=== PATIENT | female | born 1975 | race Caucasian/White ===

== ENCOUNTER → 2019-04-05 06:44 | Outpatient (CLI) | payer OTHER, SELFPAY ==
--- NOTE | 2019-04-05 | DI.MRI.S_ITS ---
PROCEDURE: MR THORACIC SPINE WO CON INDICATIONS: Radiculopathy, thoracic region TECHNIQUE: Noncontrast sagittal T1 spine echo and T2 fast spin echo, sagittal STIR, axial T1 and T2 fast spin echo through the thoracic spine. COMPARISON: [facility], CR, XR CERVICAL SPINE 2 OR 3 VIEWS, 08/31/2017, 8:47. [facility], MR, MR CERVICAL SPINE WITHOUT CONTRAST, 10/16/2018, 18:29. FINDINGS: Image quality: Excellent. Alignment and Curvature: There is normal bony alignment. Remote ACDF is noted at C6-C7. The thoracic vertebral bodies are normally . Bone Marrow: Marrow is of normal overall signal. No acute vertebral body compression fractures. Spinal Cord: Visualized spinal cord is normal in size and signal. Paraspinous Soft Tissues: No paravertebral masses. Miscellaneous: Abnormal levels are described below: T7-T8: Moderate right paracentral disc extrusion with disc material extending superiorly behind T7. There is indentation on the right anterior cord with mild canal stenosis. Bilateral foramen are patent. T11-T12: Large left paracentral disc protrusion impinges on the left lateral recess, likely resulting in left T11 and possibly left T12 radiculopathy. Disc material indents on the left anterior aspect of the cord, resulting in moderate left canal stenosis. No canal stenosis or foraminal narrowing at other thoracic levels. IMPRESSION: 1. Large left paracentral disc protrusion at T11-T12 impinges on the left lateral recess and indents on the left hemicord. It causes moderate stenosis of the left reanna-canal. It likely results in the left T11 and possibly a left T12 radiculopathy. 2. At T7-T8, a moderate right paracentral disc extrusion indents on the right anterior cord with mild canal stenosis. Dictated by: Mark Barry M.D. on 04/05/2019 at 10:46 Approved by: Makr Barry M.D. on 04/05/2019 at 10:54
== END ==
PROVIDERS: PCP Specialist; Visit Provider Preventive Medicine Occupational Medicine
DX: M51.14 Intervertebral disc disorders with radiculopathy, thoracic region (principal); M48.04 Spinal stenosis, thoracic region
CPT/HCPCS: 72146

== ENCOUNTER 2019-04-26 08:44 | Outpatient (CLI) | payer OTHER, SELFPAY ==
[2019-04-26] VITALS (8 sets, daily range): BP systolic 104–124; BP diastolic 57–87; PULSE 63–75; RESP 15–16; TEMP 36.6; O2SAT 96–100
--- NOTE | 2019-04-26 08:47 | DI.RAD.S_ITS ---
PROCEDURE: PAIN C/T TRANFORAMINAL INJECT INDICATIONS: RADICULOPATHY FINDINGS: Fluoroscopic spot filming was performed to verify placement of spinal needles at the C6-C7 level(s), as labeled on the films. Appropriate location(s) of the needle tip(s) was confirmed by injection of iodinated contrast. Dictated by: Rudy Moss M.D. on 04/26/2019 at 12:56 Approved by: Rudy Moss M.D. on 04/26/2019 at 12:57
[2019-04-26] MEDS: MIDAZOLAM 5 MG/5 ML VIAL IV (10:04)
[2019-04-26] MEDS: fentaNYL 100 MCG/2 ML INJ 50 MCG IV (10:04)
[2019-04-26] MEDS: IOPAMIDOL 15 ML VIAL 3 ML INJ (10:15)
[2019-04-26] MEDS: LIDOCAINE 1% 20 ML 5 ML INJ (10:15)
[2019-04-26] MEDS: DEXAMETHASONE 10 MG/ML VIAL 30 MG INJ (10:15)
--- NOTE | 2019-04-26 10:21 | P.PCN_ITS ---
Procedures Date/Time Date of procedure: 04/26/19 Time of procedure: 10:21 General Procedure description: PREOP DIAGNOSIS 1. CERVICAL STENOSIS, 2. CERVICAL HNP WITH UPPER EXTREMITY RADICULAR FEATURES, POST OP DIAGNOSIS 1. CERVICAL STENOSIS, 2. CERVICAL HNP WITH UPPER EXTREMITY RADICULAR FEATURES, PROCEDURES 1. FLUORSCOPICALLY GUIDED CONTRAST CONTROLLED INTERLAMINAR EPIDURAL STEROID INJECTION - C6/7 TL LIEN PHYSICIAN: Daniel Ibarra DO MIKO Andreina is referred by Dr. Mendenhall for treatment of Cervical HNP with Upper Extremity Paresthesias. FINDINGS Cervical Stenosis due to disc deterioration and nerve root irritation and nerve root irritation DESCRIPTION OF PROCEDURE Fluoroscopically guided, contrast-controlled C6/7 translaminar epidural steroid injection with conscious sedation. Following review of allergy and review of potential side effects and complications, including, but not necessarily limited to, infection, allergic reaction, local tissue breakdown, temporary as well as permanent nerve injury, stroke, paralysis, and possible , the patient indicated that patient understood and agreed to proceed. An informed consent document was signed by the patient, witnessed by a nurse, and placed in the patient's chart. Additionally, other treatment options including modalities, medications, and physical therapy were reviewed with the patient. After review of previous anaesthesic history and IV conscious sedation the patient was deemed safe to proceed with todays procedure with IV conscious sedation as ASA class II designation. Safety time-out was performed to confirm patient ID, procedure to be performed and site of procedure. IV sedation was accomplished with a combination of 2mg of Versed and 50mcg of Fentanyl administered by the RN after DO order, titrated to patient comfort during the course of the procedure while the patient remained responsive to all verbal commands. In the prone position, following sterile prep and drape of the cervical region, the C6/7 translaminar space was identified fluoroscopically. The skin was anesthetized via a 25-gauge 1.5-inch needle with 1% lidocaine solution. At this point, a 25-gauge, 2.5-inch short bevel spinal needle was atraumatically introduced and advanced under fluoroscopic guidance into epidural space at the C6/7 translaminar space. Depth was confirmed on lateral view. Radiological data, including multiple fluoroscopic views of the cervical spine, reveal a spinal needle at the C6/7 translaminar space. Lateral views then show placement of the needle in the epidural space. Subsequent views show contrast material flowing superiorly and inferiorly in the epidural space. DSA fluoroscopy with live contrast injection, once again, confirmed no vascular or intrathecal uptake. At this point, using loss of resistance technique with saline and air, the epidural space was entered. Following negative aspiration, injection of approximately 1.5 cc of Isovue-200 with live fluoroscopy in the AP view confirmed epidural flow in the epidural space without vascular or intrathecal uptake observed. Subsequently, a test dose of 1 cc of 1% lidocaine solution was injected and patient was observed for two minutes without signs or symptoms of complications, including abdominal pain, shortness of breath, bilateral upper or lower extremity weakness, nausea and vomiting, prior to steroid injection. At this point, 2cc or 20mg of dexamethasone was then injected without incident. The patient tolerated the procedure well without signs or symptoms of complications prior to being transferred to the recovery area for further mo nitoring, The patient was then transferred to the recovery area where they were observed for an appropriate period of time after the injection. The patient reported a VAS score of 6 prior to the procedure and a post-procedure VAS of 0. Total Fluoroscopy Time: 37.0 seconds Total Conscious Time: 24min POST OP INSTRUCTIONS The patient was provided a Pain Log to continue to record their response to the target-specific procedure prior to follow-up visit with the referring provider. Additionally, specific post-injection care instructions and a contact number to our office were provided if concerns arise regarding possible complications associated with the procedure are suspected. Daniel Ibarra DO Complications: none
--- NOTE | 2019-04-26 16:53 | PC.NURSE ---
Late entry: post procedure note--Time out at 1003. Medicated with 2 IV Versed and 50 mcg IV Fentanyl at 1004 with good pain relief. VSS throughout. 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 Procedure end at 1015. Patient drowsy but awake. Able to sit up and transfer to wheelchair without any difficulties. No complaints of pain. 0/10. Denies any unusual numbness, tingling, or headaches to upper extremities. Transported for post procedure monitoring. Handoff report given to Mickey Patel RN
== END 2019-04-26 10:49 | disposition home or self-care (01) ==
PROVIDERS: PCP Preventive Medicine Occupational Medicine; Visit Provider Physical Medicine & Rehabilitation
DX: M48.02 Spinal stenosis, cervical region (principal); M50.123 Cervical disc disorder at C6-C7 level with radiculopathy; R20.2 Paresthesia of skin
CPT/HCPCS: 62321; 64479; 99152; J1100; J2250; J3010

== ENCOUNTER 2019-07-10 07:58 | Outpatient (CLI) | payer OTHER, SELFPAY ==
[2019-07-10] VITALS (11 sets, daily range): BP systolic 107–123; BP diastolic 58–87; PULSE 54–84; RESP 16; TEMP 36.4; O2SAT 97–100
--- NOTE | 2019-07-10 08:00 | DI.RAD.S_ITS ---
PROCEDURE: PAIN C/T TRANFORAMINAL INJECT INDICATIONS: SPONDYLOSIS FINDINGS: Fluoroscopic spot filming was performed to verify placement of spinal needles at the T7-T8 level(s), as labeled on the films. Appropriate location(s) of the needle tip(s) was confirmed by injection of iodinated contrast. IMPRESSION: Fluoroscopy for pain management. Dictated by: Mercedes Willingham M.D. on 07/10/2019 at 11:30 Approved by: Mercedes Willingham M.D. on 07/10/2019 at 11:31
[2019-07-10] MEDS: MIDAZOLAM 5 MG/5 ML VIAL IV (10:40)
[2019-07-10] MEDS: fentaNYL 100 MCG/2 ML INJ 50 MCG IV (10:40)
[2019-07-10] MEDS: DEXAMETHASONE 10 MG/ML VIAL 30 MG INJ (10:50)
[2019-07-10] MEDS: LIDOCAINE 1% 20 ML 5 ML INJ (10:50)
[2019-07-10] MEDS: IOPAMIDOL 15 ML VIAL 3 ML INJ (10:50)
--- NOTE | 2019-07-10 10:53 | PC.NURSE ---
ASSISTING PT OFF TABLE AND TRANSPORTING TO POST PROC AREA IN STABLE CONDITION. PASSING RN CARE OF PT TO DWIGHT Paul RN.
--- NOTE | 2019-07-10 11:00 | P.PCN_ITS ---
Procedures Date/Time Date of procedure: 07/10/19 Time of procedure: 11:00 General Procedure description: PREOP DIAGNOSIS 1. FORMAINAL STENOSIS WITH LE SYMPTOMS, POST OP DIAGNOSIS 1. FORMAINAL STENOSIS WITH LE SYMPTOMS, PROCEDURES 1. FLUOROSCOPICALLY GUIDED CONTRAST CONTROLLED TRANSFORAMINAL EPIDURAL STEROID INJECTION - RIGHT T7/8 TFESI PHYSICIAN: Daniel Ibarra, DO INDICATIONS Andreina is referred by Dr. Mendenhall for treatment of Foraminal Stenosis with Right thoracic Symptoms FINDINGS Foraminal Nerve Root Compression secondary to disc disease and facet hypertrophy DESCRIPTION OF PROCEDURE Following review of allergy and review of potential side effects and complications, including, but not necessarily limited to, infection, allergic reaction, local tissue breakdown, stroke, temporary or permanent nerve injury, paralysis, and possible , the patient indicated that the patient understood and agreed to proceed. An informed consent document was signed by the patient, witnessed by a nurse, and placed in the patient's chart. Additionally, other treatment options including medications, modalities, and physical therapy were reviewed with the patient. After review of previous anaesthesic history and IV conscious sedation the patient was deemed safe to proceed with todays procedure with IV conscious sedation as ASA class II designation. Safety time-out was performed to confirm patient ID, procedure to be performed and site of procedure. IV sedation was accomplished with a combination of 2mg of Versed and 50mcg of Fentanyl was administered by the RN after DO order, titrated to patient comfort during the course of the procedure while the patient remained responsive to all verbal commands In the prone position following sterile prep and drape of the lumbar region, the right T7/8 posterior neuroforamen was identified fluoroscopically. The skin was anesthetized via a 25-gauge 1.5-inch needle with 1% lidocaine solution. At this point, a 25-gauge 3.5-inch spinal needle was atraumatically introduced and advanced under fluoroscopic guidance through the posterior right T7/8 neuroforamen to approximately the anterior aspect of the canal. Depth was confirmed on lateral view. Following negative aspiration, injection of approximately 1.5 cc of Isovue 200 under live fluoroscopy in the AP view confirmed excellent flow along the nerve root, into the epidural space without vascular or intrathecal uptake observed Radiological data, including multiple fluoroscopic views reveal the needle placement in the right T7/8 posterior neuroforamen. Subsequent views show flow of contrast material flowing superiorly and inferiorly along the nerve root confirming epidural flow. Subsequently, a test dose of 1.5 cc of 1% lidocaine solution was administered and patient was observed for signs or symptoms of complications, including abdominal pain, shortness of breath, bilateral upper or lower extremity weakness, nausea and vomiting, prior to steroid injection. At this point, a total of 2cc or 20mg of dexamethasone was injected without incident. The procedure tolerated the procedure well without signs or symptoms of complications prior to transfer to the recovery area continued monitoring without incident.The patient was then transferred to the recovery area where they were observed for an appropriate time after the injection. The patient reported a VAS score of 7 prior to the procedure and a post- procedure VAS of 0. Total Fluoroscopy Time: 17.3 seconds Total Conscious Sedation Time: 24min POST OP INSTRUCTIONS The patient was provided a Pain Log to continue to record their response to the target-specific procedure prior to follow-up visit with their referring physician. Additionally, specific post-injection care instructions and a contact number to our office were provided if concerns arise regarding possible complications associated with the procedure are suspected. Daniel Ibarra DO Complications: none
== END 2019-07-10 11:26 | disposition home or self-care (01) ==
LOC: RAD 07:59
PROVIDERS: PCP Preventive Medicine Occupational Medicine; Visit Provider Physical Medicine & Rehabilitation
DX: M48.04 Spinal stenosis, thoracic region (principal); M51.14 Intervertebral disc disorders with radiculopathy, thoracic region
CPT/HCPCS: 64479; 99152; J1100; J2250; J3010

== ENCOUNTER → 2020-03-24 09:52 | Outpatient (CLI) | payer OTHER, SELFPAY ==
--- NOTE | 2020-03-24 09:53 | DI.MRI.S_ITS ---
PROCEDURE: MR CERVICAL SPINE WO CON INDICATIONS: Status post cervical fusion TECHNIQUE: Noncontrast sagittal T1 spin echo and T2 fast spin echo, sagittal STIR, foraminal oblique sagittal T2 fast spin echo, and axial gradient echo or T2 fast spin echo through the cervical spine. COMPARISON: [facility], MR, MR CERVICAL SPINE WITHOUT CONTRAST, 10/16/2018, 18:29 (images only, no report). [facility], CT, CT CERVICAL SPINE WITHOUT CONTRAST, 04/06/2017, 13:27. [facility], MR, MR THORACIC SPINE WO CON, 04/05/2019, 7:08. [facility], CR, XR CERVICAL SPINE 2 OR 3 VIEWS, 08/31/2017, 8:47. FINDINGS: Image quality: Diagnostic, with note made of motion artifact. Alignment and Curvature: There is normal bony alignment. Bone Marrow: Marrow demonstrates normal overall signal. Spinal Cord: Visualized spinal cord has normal size and signal. No cerebellar tonsillar herniation. Paraspinous Soft Tissues: No paravertebral masses. Prevertebral soft tissues are normal in thickness. C2-C3: No significant abnormality is seen. C3-C4: The disc height is well-preserved. Loss of disc signal is seen at this level. A mild degree of generalized disc osteophyte complex is seen. Mild facet joint hypertrophy is seen. There is mild to moderate left-sided and mild right-sided neural foraminal narrowing seen. The central canal is widely patent. The right-sided neural foraminal narrowing appears increased compared to the prior MRI. C4-C5: The disc height is well-preserved. Loss of disc signal is seen at this level. A mild degree of generalized disc osteophyte complex is seen. Mild to moderate facet hypertrophy is seen. Mild to moderate bilateral neural foraminal narrowing is seen. The central canal is widely patent. Stable from the prior study. C5-C6: The disc height is well-preserved. Loss of disc signal is seen at this level. Moderate generalized disc osteophyte complex is seen. Mild to moderate facet hypertrophy is seen. There is at least moderate right-sided and moderate left-sided neural foraminal narrowing seen. Mild central canal narrowing is seen. These degenerative changes appear slightly progressed compared to the prior MRI. C6-C7: Postoperative changes are seen anteriorly at this level, with associated susceptibility artifact. A mild degree of generalized disc osteophyte complex is seen. Minimal bilateral neural foraminal narrowing is seen. The central canal is widely patent. Stable from the prior study. C7-T1: The disc height is well-preserved. Loss of disc signal is seen at this level. A mild degree of generalized disc osteophyte complex is seen. No significant neural foraminal or central canal narrowing can be seen. Stable from the prior study. IMPRESSION: Unremarkable anterior fixation hardware at C6-C7. Mild progression of degenerative change at C3-C4 and C5-C6 compared to the prior outside 2019 MRI. Dictated by: Henrique Chiang M.D. on 03/24/2020 at 10:26 Approved by: Henrique Chiang M.D. on 03/24/2020 at 10:32
== END ==
PROVIDERS: PCP Preventive Medicine Occupational Medicine; Referring Provider Physical Medicine & Rehabilitation; Visit Provider Physical Medicine & Rehabilitation
DX: M47.22 Other spondylosis with radiculopathy, cervical region (principal); Z98.1 Arthrodesis status
CPT/HCPCS: 72141

== ENCOUNTER 2020-04-17 10:11 | Outpatient (CLI) | payer OTHER, SELFPAY | END 2020-04-17 14:29 | disposition home or self-care (01) | LOC: PHYS 10:13 | PROVIDERS: PCP Preventive Medicine Occupational Medicine; Referring Provider Physical Medicine & Rehabilitation; Visit Provider Physical Medicine & Rehabilitation | DX: M50.20 Other cervical disc displacement, unspecified cervical region (principal); M51.04 Intervertebral disc disorders with myelopathy, thoracic region; M54.12 Radiculopathy, cervical region; M47.24 Other spondylosis with radiculopathy, thoracic region | CPT/HCPCS: 95886; 95912 ==

== ENCOUNTER → 2020-04-19 10:10 | Outpatient (CLI) | payer OTHER, SELFPAY ==
[2020-04-21 07:58] LABS: COVID19 Sendout Not Detected (Not Detect)
== END ==
PROVIDERS: PCP Preventive Medicine Occupational Medicine; Visit Provider Physician Assistant
DX: Z01.812 Encounter for preprocedural laboratory examination (principal)
CPT/HCPCS: 87635

== ENCOUNTER → 2020-04-22 07:57 | Outpatient (CLI) | payer OTHER, SELFPAY ==
[2020-04-22] VITALS (8 sets, daily range): BP systolic 114–144; BP diastolic 72–88; PULSE 62–77; RESP 9–16; TEMP 36.2; O2SAT 99–100
--- NOTE | 2020-04-22 07:59 | DI.RAD.S_ITS ---
PROCEDURE: PAIN C/T INTERLAMINAR INJECT INDICATIONS: INTERVERTEBRAL DISC DISORDER COMPARISON: [facility], , PAIN C/T INTERLAMINAR INJECT, 04/26/2019, 10:09. FINDINGS: Fluoroscopic spot filming was performed to verify placement of spinal needles at the T8-T9 level, as labeled on the films. Appropriate location(s) of the needle tip(s) was confirmed by injection of iodinated contrast. IMPRESSION: Intraprocedural examination within normal limits. Dictated by: Henrique Chiang M.D. on 04/22/2020 at 10:08 Approved by: Henrique Chiang M.D. on 04/22/2020 at 10:09
[2020-04-22] MEDS: fentaNYL 100 MCG/2 ML INJ 50 MCG IV (09:06)
[2020-04-22] MEDS: MIDAZOLAM 5 MG/5 ML VIAL IV (09:06)
[2020-04-22] MEDS: BUPIVACAINE 0.25% (PF) VIAL 2 ML INJ (09:10)
[2020-04-22] MEDS: DEXAMETHASONE 10 MG/ML VIAL 30 MG INJ (09:10)
[2020-04-22] MEDS: IOPAMIDOL 15 ML VIAL 3 ML INJ (09:10)
--- NOTE | 2020-04-22 09:25 | PM.PROC.IR.1 ---
Date/Time/Diagnoses Date of procedure: 04/22/20 Time of procedure: 09:25 Pre-procedure diagnosis: Thoracic stenosis with HNP Post-procedure diagnosis: same Procedure Notes Procedure: Fluoroscopic guided, contrast controlled T8-9 translaminar epidural steroid injection with conscious sedation. Indications: Andreina is referred by Dr. Mendenhall for treatment of thoracic DDD/DJD with radiculopathy Physician: Daniel Ibarra Total Fluoroscopy time (seconds): 18 Total sedation minutes: 14 Complications: none Procedure in detail & Post-procedure care: DESCRIPTION OF PROCEDURE Fluoroscopic guided, contrast controlled T8-9 translaminar epidural steroid injection with conscious sedation. Following review of allergy review potential side effects and complications, including, but not necessarily limited to, infection, allergic reaction, local tissue breakdown, temporary as well as permanent nerve injury, stroke, paralysis and possible , the patient indicated that they understood and agreed to proceed. An informed consent document was signed by the patient, witnessed by the nurse, and placed in the patient's chart. Additionally other treatment options including modalities, medications and physical therapy were reviewed with the patient. After review of previous anaesthesic history and IV conscious sedation the patient was deemed safe to proceed with today's procedure with IV conscious sedation as ASA class II designation. Safety time-out was performed to confirm patient ID, procedure to be performed and site of procedure. IV sedation was accomplished with a combination of 2mg of Versed and 50mcg of Fentanyl administered by the RN after DO order, titrated to patient comfort during the course of the procedure while the patient remained responsive to all verbal commands In the prone position, following sterile prep and drape of the thoracic region the T8-9 translaminar space was identified fluoroscopically. The skin was anesthetized via 25 gauge 1.5inch needle with 1% lidocaine solution. At this point a 22gauge epidural needle was atraumatically introduced and advanced under fluoroscopic guidance into the region of the T8-9 translaminar space depth was confirmed on lateral view. Radiographic data, including multiple fluoroscopic views of the thoracic spine, reveals spinal needle at the T8-9 translaminar space. Lateral views then showed the placement of the needle in the epidural space. Subsequent view show contrast material flowing superiorly and inferiorly in the epidural space. No vascular or intrathecal uptake is observed. At this point using loss of resistance technique with saline and the epidural space was entered. This was confirmed followed negative aspiration and injection of approximately 1.5cc of Isovue 200 showed excellent epidural flow without vascular or intrathecal uptake. At this point, 1 cc of 1% lidocaine solution was admitted as a test dose and the patient was observed for an appropriate period of time without signs or symptoms of complications, including abdominal pain, shortness of breath, bilateral upper and lower extremity weakness, nausea and vomiting, prior to steroid injection. Subsequently, 3cc or 30mg of dexamethasone was then injected without incident. The patient tolerated the procedure well without signs of complications and subsequently was transferred to the recovery room for further monitoring. The patient was then transferred to the recovery area with their observed for an appropriate time after the injection. Patient reported a VAS score of 7 prior to the procedure and post-procedure VAS of 2.
== END ==
PROVIDERS: PCP Preventive Medicine Occupational Medicine; Referring Provider Physical Medicine & Rehabilitation; Visit Provider Physical Medicine & Rehabilitation
DX: M48.04 Spinal stenosis, thoracic region (principal); M51.14 Intervertebral disc disorders with radiculopathy, thoracic region; M47.24 Other spondylosis with radiculopathy, thoracic region
CPT/HCPCS: 62321; 99152; J1100; J2250; J3010

== ENCOUNTER → 2020-06-25 13:38 | Outpatient (CLI) | payer OTHER, SELFPAY ==
--- NOTE | 2020-06-25 13:40 | DI.RAD.S_ITS ---
PROCEDURE: XR CERVICAL SPINE 4V OR 5V INDICATIONS: update imaging TECHNIQUE: 5 views of the cervical spine acquired. COMPARISON: None. FINDINGS: Bones: No fracture. C6-C7 ACDF. Expected postoperative alignment. Hardware appears intact without evidence of loosening. Remaining disc spaces grossly preserved. Multilevel degenerative endplate sclerosis and spurring. Diffuse facet arthropathy. No definite high-grade bony foraminal stenosis. Soft tissues: No prevertebral soft tissue swelling. IMPRESSION: Postsurgical and mild spondylitic changes as above Dictated by: Rudy Moss M.D. on 06/25/2020 at 15:49 Approved by: Rudy Moss M.D. on 06/25/2020 at 15:51
== END ==
PROVIDERS: PCP Preventive Medicine Occupational Medicine; Referring Provider Physical Medicine & Rehabilitation; Visit Provider Physical Medicine & Rehabilitation
DX: M47.24 Other spondylosis with radiculopathy, thoracic region (principal); Z98.1 Arthrodesis status; M51.04 Intervertebral disc disorders with myelopathy, thoracic region
CPT/HCPCS: 72050; 99214

== ENCOUNTER → 2020-08-04 13:25 | Outpatient (CLI) | payer OTHER, MEDICAID, SELFPAY ==
[2020-08-04 14:52] LABS: COVID19 -Nasal RAPID Negative (Negative)
== END ==
PROVIDERS: PCP Preventive Medicine Occupational Medicine; Visit Provider Physical Medicine & Rehabilitation
DX: Z20.822 Contact with and (suspected) exposure to COVID-19 (principal)
CPT/HCPCS: 87635; C9803

== ENCOUNTER 2020-08-05 08:55 | Outpatient (CLI) | payer OTHER, SELFPAY ==
--- NOTE | 2020-08-05 08:57 | DI.RAD.S_ITS ---
PROCEDURE: PAIN C/T INTERLAMINAR INJECT INDICATIONS: SPINAL STENOSIS COMPARISON: [facility], [place], XR CERVICAL SPINE 4V OR 5V, 06/25/2020, 13:40. [facility], [place], PAIN C/T INTERLAMINAR INJECT, 04/22/2020, 9:07. FINDINGS: Fluoroscopic spot filming was performed to verify placement of a spinal needle at the C6-C7 level, as labeled on the films. Appropriate location of the needle tip was confirmed by injection of iodinated contrast. IMPRESSION: No significant intraprocedural abnormality. Dictated by: Henrique Chiang M.D. on 08/05/2020 at 9:06 Approved by: Henrique Chiang M.D. on 08/05/2020 at 9:07
[2020-08-05 09:13] VITALS: BP 137/94; PULSE 80; RESP 15; TEMP 36.1; O2SAT 99
[2020-08-05 09:36] VITALS: BP 156/81; PULSE 81; RESP 14; O2SAT 98
[2020-08-05] MEDS: fentaNYL 100 MCG/2 ML INJ 50 MCG IV (09:36)
[2020-08-05] MEDS: MIDAZOLAM 5 MG/5 ML VIAL IV (09:36)
[2020-08-05 09:40] VITALS: BP 113/73; PULSE 80; RESP 14; O2SAT 98
[2020-08-05] MEDS: IOPAMIDOL 15 ML VIAL 3 ML INJ (09:41)
[2020-08-05] MEDS: BUPIVACAINE 0.25% (PF) VIAL 2 ML INJ (09:41)
[2020-08-05] MEDS: DEXAMETHASONE 10 MG/ML VIAL 30 MG INJ (09:41)
[2020-08-05 09:45] VITALS: BP 118/79; PULSE 19; RESP 14; O2SAT 98
--- NOTE | 2020-08-05 09:53 | P.PCN_ITS ---
Date/Time/Diagnoses Date of procedure: 08/05/20 Time of procedure: 09:53 Pre-procedure diagnosis: 1. CERVICAL STENOSIS, 2. CERVICAL HNP WITH UPPER EXTREMITY RADICULAR FEATURES Post-procedure diagnosis: same Procedure Notes Procedure: 1. FLUORSCOPICALLY GUIDED CONTRAST CONTROLLED INTERLAMINAR EPIDURAL STEROID INJECTION - C6/7 TL LIEN Indications: Andreina is referred by Dr. Mendenhall for treatment of Cervical HNP with Upper Extremity Paresthesias. Physician: Daniel Ibarra Total Fluoroscopy time (seconds): 28 Total sedation minutes: 13 Complications: none Procedure in detail & Post-procedure care: FINDINGS Cervical Stenosis due to disc deterioration and nerve root irritation and nerve root irritation DESCRIPTION OF PROCEDURE Fluoroscopically guided, contrast-controlled C6/7 translaminar epidural steroid injection with conscious sedation. Following review of allergy and review of potential side effects and complications, including, but not necessarily limited to, infection, allergic reaction, local tissue breakdown, temporary as well as permanent nerve injury, stroke, paralysis, and possible , the patient indicated that patient understood and agreed to proceed. An informed consent document was signed by the patient, witnessed by a nurse, and placed in the patient's chart. Additionally, other treatment options including modalities, medications, and physical therapy were reviewed with the patient. After review of previous anaesthesic history and IV conscious sedation the patient was deemed safe to proceed with today?s procedure with IV conscious sherice tion as ASA class II designation. Safety time-out was performed to confirm patient ID, procedure to be performed and site of procedure. IV sedation was accomplished with a combination of 2mg of Versed and 50mcg of Fentanyl administered by the RN after DO order, titrated to patient comfort during the course of the procedure while the patient remained responsive to all verbal commands. In the prone position, following sterile prep and drape of the cervical region, the C6/7 translaminar space was identified fluoroscopically. The skin was anesthetized via a 25-gauge 1.5-inch needle with 1% lidocaine solution. At this point, a 25-gauge, 2.5-inch short bevel spinal needle was atraumatically introduced and advanced under fluoroscopic guidance into epidural space at the C6/7 translaminar space. Depth was confirmed on lateral view. Radiological data, including multiple fluoroscopic views of the cervical spine, reveal a spinal needle at the C6/7 translaminar space. Lateral views then show placement of the needle in the epidural space. Subsequent views show contrast material flowing superiorly and inferiorly in the epidural space. DSA fluoroscopy with live contrast injection, once again, confirmed no vascular or intrathecal uptake. At this point, using loss of resistance technique with saline and air, the epidural space was entered. Following negative aspiration, injection of approximately 1.5 cc of Isovue-200 with live fluoroscopy in the AP view confirmed epidural flow in the epidural space without vascular or intrathecal uptake observed. Subsequently, a test dose of 1 cc of 1% lidocaine solution was injected and patient was observed for two minutes without signs or symptoms of complications, including abdominal pain, shortness of breath, bilateral upper or lower extremity weakness, nausea and vomiting, prior to steroid injection. At this point, 3cc or 30mg of dexamethasone was then injected without incident. The patient tolerated the procedure well without signs or symptoms of complications prior to being transferred to the recovery area for further monitoring, The patient was then transferred to the recovery area where they were observed for an appropriate period of time after the injection. The patient reported a VAS score of 6 prior to the procedure and a post-procedure VAS of 0. POST OP INSTRUCTIONS The patient was provided a Pain Log to continue to record their response to the target-specific procedure prior to follow-up visit with the referring provider. Additionally, specific post-injection care instructions and a contact number to our office were provided if concerns arise regarding possible complications associated with the procedure are suspected.
[2020-08-05 10:00] VITALS: BP 130/79; PULSE 65; RESP 15; O2SAT 95
[2020-08-05 10:05] VITALS: BP 129/78; PULSE 81; RESP 16; O2SAT 94
== END 2020-08-05 10:07 | disposition home or self-care (01) ==
LOC: RAD 08:56
PROVIDERS: PCP Preventive Medicine Occupational Medicine; Referring Provider Physical Medicine & Rehabilitation; Visit Provider Physical Medicine & Rehabilitation
DX: M48.02 Spinal stenosis, cervical region (principal); M50.123 Cervical disc disorder at C6-C7 level with radiculopathy
CPT/HCPCS: 62321; 99152; J1100; J2250; J3010

== ENCOUNTER → 2020-12-29 13:11 | Outpatient (CLI) | payer OTHER, SELFPAY ==
[2020-12-29 15:54] LABS: COVID19 -Nasal RAPID Negative (Negative)
== END ==
PROVIDERS: PCP Preventive Medicine Occupational Medicine; Referring Provider Physical Medicine & Rehabilitation; Visit Provider Physician Assistant
DX: Z01.812 Encounter for preprocedural laboratory examination (principal); Z20.822 Contact with and (suspected) exposure to COVID-19
CPT/HCPCS: 87635

== ENCOUNTER 2020-12-30 08:04 | Outpatient (CLI) | payer OTHER, SELFPAY ==
[2020-12-30] VITALS (8 sets, daily range): BP systolic 116–135; BP diastolic 68–93; PULSE 65–81; RESP 12–17; TEMP 36.3; O2SAT 96–100
--- NOTE | 2020-12-30 08:06 | DI.RAD.S_ITS ---
PROCEDURE: PAIN C/T INTERLAMINAR INJECT INDICATIONS: SPONDYLOSIS COMPARISON: [facility], MR, MR THORACIC SPINE WO CON, 04/05/2019, 7:08. FINDINGS: Fluoroscopic spot filming was performed to verify placement of spinal needles at the T11-T12 level(s), as labeled on the films. Appropriate location(s) of the needle tip(s) was confirmed by injection of iodinated contrast. IMPRESSION: Fluoroscopy for pain management. Dictated by: Mercedes Willingham M.D. on 12/30/2020 at 9:49 Approved by: Mercedes Willingham M.D. on 12/30/2020 at 9:49
[2020-12-30] MEDS: fentaNYL 100 MCG/2 ML INJ 50 MCG IV (09:05)
[2020-12-30] MEDS: MIDAZOLAM 5 MG/5 ML VIAL IV (09:05)
[2020-12-30] MEDS: IOPAMIDOL 15 ML VIAL 3 ML INJ (09:10)
[2020-12-30] MEDS: BUPIVACAINE 0.25% (PF) VIAL 2 ML INJ (09:10)
[2020-12-30] MEDS: DEXAMETHASONE 10 MG/ML VIAL 20 MG INJ (09:11)
[2020-12-30] MEDS: BETAMETHASONE 30 MG/5 ML MDV 6 MG INJ (09:11)
--- NOTE | 2020-12-30 10:02 | PM.PROC.IR.1 ---
Date/Time/Diagnoses Date of procedure: 12/30/20 Time of procedure: 10:03 Pre-procedure diagnosis: Thoracic stenosis with HNP Post-procedure diagnosis: same Procedure Notes Procedure: Fluoroscopic guided, contrast controlled T11/12 translaminar epidural steroid injection with conscious sedation. Indications: Marco A is referred by Dr. Mendenhall for treatment of thoracic DDD/DJD with radiculopathy Physician: Daniel Ibarra Total Fluoroscopy time (seconds): 5 Total sedation minutes: 11 Complications: none Procedure in detail & Post-procedure care: DESCRIPTION OF PROCEDURE Fluoroscopic guided, contrast controlled T11/12 translaminar epidural steroid injection with conscious sedation. Following review of allergy review potential side effects and complications, including, but not necessarily limited to, infection, allergic reaction, local tissue breakdown, temporary as well as permanent nerve injury, stroke, paralysis and possible , the patient indicated that they understood and agreed to proceed. An informed consent document was signed by the patient, witnessed by the nurse, and placed in the patient's chart. Additionally other treatment options including modalities, medications and physical therapy were reviewed with the patient. After review of previous anaesthesic history and IV conscious sedation the patient was deemed safe to proceed with today's procedure with IV conscious sedation as ASA class II designation. Safety time-out was performed to confirm patient ID, procedure to be performed and site of procedure. IV sedation was accomplished with a combination of 2mg of Versed and 50mcg of Fentanyl administered by the RN after DO order, titrated to patient comfort during the course of the procedure while the patient remained responsive to all verbal commands In the prone position, following sterile prep and drape of the thoracic region the T11/12 translaminar space was identified fluoroscopically. The skin was anesthetized via 25 gauge 1.5inch needle with 1% lidocaine solution. At this point a 22gauge epidural needle was atraumatically introduced and advanced under fluoroscopic guidance into the region of the T11/12 translaminar space depth was confirmed on lateral view. Radiographic data, including multiple fluoroscopic views of the thoracic spine, reveals spinal needle at the T11/12 translaminar space. Lateral views then showed the placement of the needle in the epidural space. Subsequent view show contrast material flowing superiorly and inferiorly in the epidural space. No vascular or intrathecal uptake is observed. At this point using loss of resistance technique with saline and the epidural space was entered. This was confirmed followed negative aspiration and injection of approximately 1.5cc of Isovue 200 showed excellent epidural flow without vascular or intrathecal uptake. At this point, 1 cc of 1% lidocaine solution was admitted as a test dose and the patient was observed for an appropriate period of time without signs or symptoms of complications, including abdominal pain, shortness of breath, bilateral upper and lower extremity weakness, nausea and vomiting, prior to steroid injection. Subsequently, 2cc or 20mg of dexamethasone and 6mg betamethasone was then injected without incident. The patient tolerated the procedure well without signs of complications and subsequently was transferred to the recovery room for further monitoring. The patient was then transferred to the recovery area with their observed for an appropriate time after the injection. Patient reported a VAS score of 7 prior to the procedure and post-procedure VAS of 2.
== END 2020-12-30 09:40 | disposition home or self-care (01) ==
LOC: RAD 08:05
PROVIDERS: PCP Preventive Medicine Occupational Medicine; Referring Provider Physical Medicine & Rehabilitation; Visit Provider Physical Medicine & Rehabilitation
DX: M48.04 Spinal stenosis, thoracic region (principal); M51.14 Intervertebral disc disorders with radiculopathy, thoracic region; M47.24 Other spondylosis with radiculopathy, thoracic region
CPT/HCPCS: 62321; 99152; J0702; J1100; J2250; J3010

== ENCOUNTER → 2021-03-11 14:33 | Outpatient (CLI) | payer OTHER, SELFPAY ==
--- NOTE | 2021-03-11 14:34 | DI.RAD.S_ITS ---
PROCEDURE: XR THORACIC SPINE 3V INDICATIONS: Thoracic Radiculopathy TECHNIQUE: 3 views of the thoracic spine were acquired. COMPARISON: None. FINDINGS: Bones: Lower cervical fusion hardware. No thoracic fractures or dislocations. No suspicious bony lesions. 12 pairs of ribs are noted, and appear intact where visualized. Soft tissues: No paravertebral stripe thickening. IMPRESSION: No evidence acute bony abnormality of the thoracic spine. If clinical suspicion and/or symptoms persist, further assessment with repeat plain films, or advanced imaging (e.g., CT, MRI, or bone scan) may be helpful for further assessment. Dictated by: Mark Barry M.D. on 03/11/2021 at 15:51 Approved by: Mark Barry M.D. on 03/11/2021 at 15:52
== END ==
PROVIDERS: PCP Preventive Medicine Occupational Medicine; Referring Provider Physical Medicine & Rehabilitation; Visit Provider Physical Medicine & Rehabilitation
DX: M47.24 Other spondylosis with radiculopathy, thoracic region (principal); M51.04 Intervertebral disc disorders with myelopathy, thoracic region; M54.12 Radiculopathy, cervical region; Z98.1 Arthrodesis status
CPT/HCPCS: 72072; 99214

== ENCOUNTER → 2021-05-25 14:02 | Outpatient (CLI) | payer OTHER, SELFPAY ==
[2021-05-25 16:26] LABS: COVID19 -Nasal RAPID Negative (Negative)
== END ==
PROVIDERS: PCP Preventive Medicine Occupational Medicine; Referring Provider Physical Medicine & Rehabilitation; Visit Provider Physical Medicine & Rehabilitation
DX: Z20.822 Contact with and (suspected) exposure to COVID-19 (principal)
CPT/HCPCS: 87635; C9803

== ENCOUNTER 2021-05-26 08:55 | Outpatient (CLI) | payer OTHER, SELFPAY ==
[2021-05-26] VITALS (9 sets, daily range): BP systolic 100–140; BP diastolic 52–87; PULSE 56–71; RESP 12–18; TEMP 36.3; O2SAT 96–100
--- NOTE | 2021-05-26 08:57 | DI.RAD.S_ITS ---
PROCEDURE: PAIN C/T INTERLAMINAR INJECT INDICATIONS: SPINAL STENOSIS COMPARISON: [facility], , PAIN C/T INTERLAMINAR INJECT, 12/30/2020, 9:12. FINDINGS: Fluoroscopic spot filming was performed to verify placement of a spinal needle at the C6-C7 level, as labeled on the films. Appropriate location of the needle tip was confirmed by injection of iodinated contrast. IMPRESSION: No significant intraprocedural abnormality. Dictated by: Henrique Chiang M.D. on 05/26/2021 at 10:10 Approved by: Henrique Chiang M.D. on 05/26/2021 at 10:10
[2021-05-26] MEDS: fentaNYL 100 MCG/2 ML INJ 50 MCG IV (10:27)
[2021-05-26] MEDS: MIDAZOLAM 5 MG/5 ML VIAL IV (10:27)
[2021-05-26] MEDS: IOPAMIDOL 15 ML VIAL 3 ML INJ (10:31)
[2021-05-26] MEDS: BUPIVACAINE 0.25% (PF) VIAL 2 ML INJ (10:32)
[2021-05-26] MEDS: DEXAMETHASONE 10 MG/ML VIAL 30 MG INJ (10:33)
--- NOTE | 2021-05-26 10:43 | P.PCN_ITS ---
Date/Time/Diagnoses Date of procedure: 05/26/21 Time of procedure: 10:43 Pre-procedure diagnosis: 1. CERVICAL STENOSIS, 2. CERVICAL HNP WITH UPPER EXTREMITY RADICULAR FEATURES Post-procedure diagnosis: same Procedure Notes Procedure: 1. FLUORSCOPICALLY GUIDED CONTRAST CONTROLLED INTERLAMINAR EPIDURAL STEROID INJECTION - C6/7 TL LIEN Indications: Andreina is referred by Dr. Mendenhall for treatment of Cervical HNP with Upper Extremity Paresthesias. Physician: Daniel Ibarra Total Fluoroscopy time (seconds): 23 Total sedation minutes: 9 Complications: none Procedure in detail & Post-procedure care: FINDINGS Cervical Stenosis due to disc deterioration and nerve root irritation and nerve root irritation DESCRIPTION OF PROCEDURE Fluoroscopically guided, contrast-controlled C6/7 translaminar epidural steroid injection with conscious sedation. Following review of allergy and review of potential side effects and complications, including, but not necessarily limited to, infection, allergic reaction, local tissue breakdown, temporary as well as permanent nerve injury, stroke, paralysis, and possible , the patient indicated that patient understood and agreed to proceed. An informed consent document was signed by the patient, witnessed by a nurse, and placed in the patient's chart. Additionally, other treatment options including modalities, medications, and physical therapy were reviewed with the patient. After review of previous anaesthesic history and IV conscious sedation the patient was deemed safe to proceed with today?s procedure with IV conscious sherice tion as ASA class II designation. Safety time-out was performed to confirm patient ID, procedure to be performed and site of procedure. IV sedation was accomplished with a combination of 2mg of Versed and 50mcg of Fentanyl administered by the RN after DO order, titrated to patient comfort during the course of the procedure while the patient remained responsive to all verbal commands. In the prone position, following sterile prep and drape of the cervical region, the C6/7 translaminar space was identified fluoroscopically. The skin was anesthetized via a 25-gauge 1.5-inch needle with 1% lidocaine solution. At this point, a 25-gauge, 2.5-inch short bevel spinal needle was atraumatically introduced and advanced under fluoroscopic guidance into epidural space at the C6/7 translaminar space. Depth was confirmed on lateral view. Radiological data, including multiple fluoroscopic views of the cervical spine, reveal a spinal needle at the C6/7 translaminar space. Lateral views then show placement of the needle in the epidural space. Subsequent views show contrast material flowing superiorly and inferiorly in the epidural space. DSA fluoroscopy with live contrast injection, once again, confirmed no vascular or intrathecal uptake. At this point, using loss of resistance technique with saline and air, the epidural space was entered. Following negative aspiration, injection of approximately 1.5 cc of Isovue-200 with live fluoroscopy in the AP view confirmed epidural flow in the epidural space without vascular or intrathecal uptake observed. Subsequently, a test dose of 1 cc of 1% lidocaine solution was injected and patient was observed for two minutes without signs or symptoms of complications, including abdominal pain, shortness of breath, bilateral upper or lower extremity weakness, nausea and vomiting, prior to steroid injection. At this point, 3cc or 30mg of dexamethasone was then injected without incident. The patient tolerated the procedure well without signs or symptoms of complications prior to being transferred to the recovery area for further monitoring, The patient was then transferred to the recovery area where they were observed for an appropriate period of time after the injection. The patient reported a VAS score of 6 prior to the procedure and a post-procedure VAS of 0. POST OP INSTRUCTIONS The patient was provided a Pain Log to continue to record their response to the target-specific procedure prior to follow-up visit with the referring provider. Additionally, specific post-injection care instructions and a contact number to our office were provided if concerns arise regarding possible complications associated with the procedure are suspected.
== END 2021-05-26 11:08 | disposition home or self-care (01) ==
LOC: RAD 08:55
PROVIDERS: PCP Preventive Medicine Occupational Medicine; Referring Provider Physical Medicine & Rehabilitation; Visit Provider Physical Medicine & Rehabilitation
DX: M48.02 Spinal stenosis, cervical region (principal); M50.123 Cervical disc disorder at C6-C7 level with radiculopathy
CPT/HCPCS: 62321; J1100; J2250; J3010

== ENCOUNTER → 2022-06-02 08:19 | Outpatient (CLI) | payer OTHER, SELFPAY ==
--- NOTE | 2022-06-02 08:20 | DI.RAD.S_ITS ---
PROCEDURE: XR CERVICAL SPINE 4V OR 5V INDICATIONS: NECK PAIN TECHNIQUE: 5 views of the cervical spine acquired. COMPARISON: [facility], CR, XR CERVICAL SPINE 4V OR 5V, 06/25/2020, 13:40. FINDINGS: Bones: No fractures or dislocations to the T1 level. Oblique images demonstrate no bony foraminal stenoses. C6-7 interbody fusion with good graft incorporation and anterior plate and screw instrumentation in good position. Craniovertebral relationships are normal. Oblique images show no radiographic evidence of foraminal narrowing, although the images are limited by positioning Soft tissues: No prevertebral soft tissue swelling. IMPRESSION: C6-7 interbody fusion with good graft incorporation. No evidence of hardware failure or loosening. Approved by: Tai Bruce M.D. on 06/02/2022 at 9:25
== END ==
PROVIDERS: PCP Preventive Medicine Occupational Medicine; Referring Provider Physical Medicine & Rehabilitation; Visit Provider Physical Medicine & Rehabilitation
DX: M47.24 Other spondylosis with radiculopathy, thoracic region (principal); M51.04 Intervertebral disc disorders with myelopathy, thoracic region; Z98.1 Arthrodesis status
CPT/HCPCS: 72050; 99214

== ENCOUNTER 2022-06-18 12:50 | Emergency (ER) | payer OTHER, SELFPAY ==
[2022-06-18 13:02] VITALS: BP 138/85; PULSE 84; RESP 16; TEMP 35.6; O2SAT 99; BMI 40.8
--- NOTE | 2022-06-18 14:13 | DI.RAD.S_ITS ---
PROCEDURE: XR LUMBAR SPINE 2-3V INDICATIONS: fall 2 days ago, pain between shoulders and upper lumbar spi TECHNIQUE: 3 views of the lumbar spine were acquired. COMPARISON: None. FINDINGS: Bones: 5 [id number] vertebrae are present. There is normal bony alignment. No vertebral body compression fractures. No suspicious bony lesions. Soft tissues: Overlying bowel gas pattern is normal. No suspicious soft tissue calcifications. IMPRESSION: There is cete-ro-vrofxdry L5-S1 degenerative disc disease and facet osteoarthritis but no compression fracture or traumatic subluxation is seen. Dictated by: Min Gardner M.D. on 06/18/2022 at 15:30 Approved by: Min Gardner M.D. on 06/18/2022 at 15:31
--- NOTE | 2022-06-18 14:13 | DI.RAD.S_ITS ---
PROCEDURE: XR THORACIC SPINE 2V INDICATIONS: fall 2 days ago, pain between shoulders and upper lumbar spi TECHNIQUE: 3 views of the thoracic spine were acquired. COMPARISON: [facility], , XR THORACIC SPINE 3V, 03/11/2021, 14:40. FINDINGS: Bones: No fractures or dislocations. No suspicious bony lesions. 12 pairs of ribs are noted, and appear intact where visualized. Soft tissues: No paravertebral stripe thickening. IMPRESSION: No compression fracture or traumatic subluxation found. Dictated by: Min Gardner M.D. on 06/18/2022 at 15:30 Approved by: Min Gardner M.D. on 06/18/2022 at 15:30
[2022-06-18] MEDS: predniSONE 20 MG TABLET 40 MG PO (14:25)
[2022-06-18] MEDS: methocarbamoL 500 MG TABLET 750 MG PO (14:25)
[2022-06-18] MEDS: OXYCODONE/ACETAMINOPHEN 5/325 TABLET 1 TAB PO (14:25)
[2022-06-18] MEDS: LIDOCAINE PATCH 1 EACH ADH..PATCH TOP (14:26)
[2022-06-18] MEDS: KETOROLAC 30 MG/ML VIAL IM (14:26)
--- NOTE | 2022-06-18 14:28 | ED.BACK ---
HPI - Back Pain/Injury <Veronique Mullen, [facility] - Last Filed: 06/18/22 16:07> General Chief Complaint: Back Pain/Injury Stated Complaint: stabbing pain,fell due to pain T-2 passed out Time Seen by Provider: 06/18/22 13:53 Source: patient History of Present Illness HPI Narrative: This is a 47-year-old female with history of chronic cervical spine radiculopathy status post cervical spinal fusion 6 years ago with degenerative joint disease and has seen Dr. Ibarra in the past for steroid injections but states most recently she had this was 12 months ago. Patient states that this is a L and I injury and had a flare after she fell 2 days ago and states that she passed out and had pain between her shoulder lays and has had muscle spasms bilaterally since. She denies any weakness of her legs, denies new radiculopathy, denies incontinence or urinary retention. She states that she is had a cough for the last 2 days, denies fever or chills. On chart review it appears that patient had cervical spine x-ray on 06/02/2022 showing her C6-7 interbody fusion with good graft incorporation with no evidence of hardware failure or loosening. Patient states that she takes tizanidine and baclofen for her pain, states her prescriber is an Demetra winifred from [facility], and she is not on chronic pain medication or a chronic pain contract. She denies taking any Tylenol or ibuprofen for this, states that she is to take Lyrica for this pain. Patient states that she is had loose stool for the last 2 days. Related Data Home Medications Medication Instructions Recorded Confirmed omeprazole 20 mg capsule,delayed 20 mg PO BID 02/26/19 07/15/21 release tizanidine 4 mg capsule 4 mg PO BEDTIME PRN 04/11/19 06/02/22 baclofen 10 mg tablet 10 mg PO .PRN 06/02/22 06/02/22 duloxetine 30 mg capsule,delayed 30 mg PO DAILY 06/02/22 06/02/22 release losartan 50 mg tablet 50 mg PO DAILY 06/02/22 06/02/22 Previous Rx's Medication Instructions Recorded ibuprofen 800 mg tablet 800 mg PO Q8H PRN pain #30 tabs 06/18/22 methocarbamol 750 mg tablet 750 mg PO Q8H PRN muscle spasm #20 06/18/22 tabs prednisone 20 mg tablet 40 mg PO DAILY 5 days #10 tabs 06/18/22 Allergies Allergy/AdvReac Type Severity Reaction Status Date / Time Sulfa (Sulfonamide AdvReac Severe Hot Verified 06/18/22 13:02 Antibiotics) Review of Systems <ANGELA Peng - Last Filed: 06/18/22 16:07> Review of Systems ROS Unobtainable: All systems reviewed & are unremarkable except as noted in HPI and below Patient History <ANGELA Peng - Last Filed: 06/18/22 16:07> Medical History (Updated 06/18/22 @ 15:38 by ANGELA Peng) HNP (herniated nucleus pulposus with myelopathy), thoracic Thoracic radiculopathy due to degenerative joint disease of spine Surgical History History of fusion of cervical spine Social History marital status: Smoking Status: Former smoker Smoking Status: Former smoker alcohol intake frequency: holidays/special occasions only Substance Use Type: marijuana Exam <ANGELA Peng - Last Filed: 06/18/22 16:07> Narrative Exam Narrative: Reviewed vitals signs and nursing notes. General: cooperative, patient is very anxious, appears uncomfortable, hyperventilating well groomed, lying in bed and legs are bent on the stretcher HEENT: symmetrical facial expressions, moist mucous membranes, EOMI, afebrile, without Cardiovascular: regular rate and rhythm, no peripheral edema, warm extremities Respiratory: normal effort, able to speak in complete sentences, without wheezing, stridor, or abnormal breath sounds. No retractions or tachypnea. GI: abdomen soft, nontender to palpation, nondistended, without masses, rebound tenderness or exquisite tenderness with exam. MSK: moves all extremities, neurovascularly intact, no weakness, normal tone Skin: brisk capillary refill, without pallor or erythema Neuro: normal speech and cognition, A&O x3, ambulatory, clear speech Psych: mental status is grossly normal, congruent mood, normal affect, patient requested that I image her cervical spine with x-ray to add onto her thoracic and lumbar x-ray. Initially she was not complaining of pain of her cervical spine. This is added on. Initial Vital Signs Initial Vital Signs: Vital Signs Temperature 96.0 F L 06/18/22 13:02 Pulse Rate 84 06/18/22 13:02 Respiratory Rate 16 06/18/22 13:02 Blood Pressure 138/85 06/18/22 13:02 Pulse Oximetry 99 06/18/22 13:02 Oxygen Delivery Method 06/18/22 13:02 <Malcom Caballero DO - Last Filed: 06/18/22 16:31> Initial Vital Signs Initial Vital Signs: Vital Signs Temperature 96.0 F L 06/18/22 13:02 Pulse Rate 84 06/18/22 13:02 Respiratory Rate 16 06/18/22 13:02 Blood Pressure 138/85 06/18/22 13:02 Pulse Oximetry 99 06/18/22 13:02 Oxygen Delivery Method 06/18/22 13:02 Course <ANGELA Peng - Last Filed: 06/18/22 16:07> Orders Ordered: ED Orders 06/18/22 14:13 XR lumbar spine 2-3V Stat XR thoracic spine 2V Stat 06/18/22 14:47 XR cervical spine 2V or 3V Stat 06/18/22 15:00 Urine Culture Stat Urine Microscopic Stat Discontinued Medications Ketorolac Tromethamine (Ketorolac 30 Mg/Ml Vial) 30 mg IM NOW ONE Stop: 06/18/22 14:14 Last Admin: 06/18/22 14:26 Dose: 30 mg Documented By: ZAKIA Lidocaine (Lidocaine Patch 1 Each Adh..Patch) 1 each TOP NOW ONE Stop: 06/18/22 14:16 Last Admin: 06/18/22 14:26 Dose: 1 each Documented By: ZAKIA Methocarbamol (Methocarbamol 500 Mg Tablet) 750 mg PO NOW ONE Stop: 06/18/22 14:14 Last Admin: 06/18/22 14:25 Dose: 750 mg Documented By: ZAKIA Oxycodone/Acetaminophen (Oxycodone/Acetaminophen 5/325 Tablet) 1 tab PO NOW ONE Stop: 06/18/22 14:14 Last Admin: 06/18/22 14:25 Dose: 1 tab Documented By: ZAKIA Prednisone (Prednisone 20 Mg Tablet) 40 mg PO NOW ONE Stop: 06/18/22 14:14 Last Admin: 06/18/22 14:25 Dose: 40 mg Documented By: ZAKIA Vital Signs Vital signs: Vital Signs - 8 hr 06/18/22 13:02 06/18/22 15:53 Temperature 96.0 F L Pulse Rate 84 68 Respiratory Rate 16 16 Blood Pressure 138/85 129/73 Pulse Oximetry 99 96 Oxygen Delivery Method Room Air Room Air <Malcom Caballero DO - Last Filed: 06/18/22 16:31> Orders Ordered: ED Orders 06/18/22 14:13 XR lumbar spine 2-3V Stat XR thoracic spine 2V Stat 06/18/22 14:47 XR cervical spine 2V or 3V Stat 06/18/22 15:00 Urine Culture Stat Urine Microscopic Stat Discontinued Medications Ketorolac Tromethamine (Ketorolac 30 Mg/Ml Vial) 30 mg IM NOW ONE Stop: 06/18/22 14:14 Last Admin: 06/18/22 14:26 Dose: 30 mg Documented By: ZAKIA Lidocaine (Lidocaine Patch 1 Each Adh..Patch) 1 each TOP NOW ONE Stop: 06/18/22 14:16 Last Admin: 06/18/22 14:26 Dose: 1 each Documented By: ZAKIA Methocarbamol (Methocarbamol 500 Mg Tablet) 750 mg PO NOW ONE Stop: 06/18/22 14:14 Last Admin: 06/18/22 14:25 Dose: 750 mg Documented By: ZAKIA Oxycodone/Acetaminophen (Oxycodone/Acetaminophen 5/325 Tablet) 1 tab PO NOW ONE Stop: 06/18/22 14:14 Last Admin: 06/18/22 14:25 Dose: 1 tab Documented By: ZAKIA Prednisone (Prednisone 20 Mg Tablet) 40 mg PO NOW ONE Stop: 06/18/22 14:14 Last Admin: 06/18/22 14:25 Dose: 40 mg Documented By: ZAKIA Vital Signs Vital signs: Vital Signs - 8 hr 06/18/22 13:02 06/18/22 15:53 Temperature 96.0 F L Pulse Rate 84 68 Respiratory Rate 16 16 Blood Pressure 138/85 129/73 Pulse Oximetry 99 96 Oxygen Delivery Method Room Air Room Air MDM - Back Pain/Injury <ANGELA Peng - Last Filed: 06/18/22 16:07> Medical Records Medical records narrative: Obtained records from [facility], patient's visit was on 06/16/2022, her fall was precipitated by abdominal pain she felt lightheaded prior to this, complained of neck pain and stated that her upper thoracic area with herniated discs and is arranging disc injections with her pain specialist hopefully in the next few weeks but patient has not seen him for 1 year, has not had lumbar pains in the past but has had lumbar pain since the fainting episode. She was prescribed Percocet, Decadron, did not have weakness or mobility deficit, her lab work overall was unremarkable, she had a CT scan of her abdomen pelvis to include the low back and there were no acute abnormalities. Her EKG was sinus rhythm without ST changes. Radiology report shows no acute abdominopelvic pathology or evidence of traumatic injury. Lab Data Labs: Lab Results 06/18/22 Range/Units 15:00 Urine RBC 1-5/hpf (0-5/HPF) Urine WBC 1-5/hpf (0-5/HPF) Ur Squamous Epith Cells 1-5 /hpf (0-5/HPF) Urine Bacteria Many (>30) H (None) Ur Culture Indicated? Specimen cultured Point of Care Testing Test Results Negative Urine Dip Bedside Urine Glucose Negative Bedside Urine Bilirubin - Negative Bedside Urine Ketone - Negative Urine Specific Zalma 1.015 Bedside Urine Occult Blood ++ Bedside Urine pH 7 Bedside Urine Protein - Negative Bedside Urine Urobilinogen - Negative Bedside Urine Nitrite - Negative Bedside Urine Leukocytes - Negative Esterase Imaging Data cervical spine: Radiologist's Impression: PROCEDURE:? XR CERVICAL SPINE 2V OR 3V ? INDICATIONS:? worse pain ? TECHNIQUE:? 3 view(s) of the cervical spine were acquired.? ? COMPARISON:? [facility], CR, XR CERVICAL SPINE 4V OR 5V, 06/02/2022, 8:23.? [facility], CR, XR CERVICAL SPINE 4V OR 5V, 06/25/2020, 13:40. ? FINDINGS:? ? Bones:? No fractures or dislocations to the T1 level.? The lateral masses of C1 appear intact on the odontoid view.? No suspicious bony lesions.? ? Soft tissues:? No prevertebral soft tissue swelling.? ? ? IMPRESSION:? Prior anterior fusion plate at C6-C7 shows no evidence of loosening.? No subluxation is found and no acute trauma is seen.? Source of worsening pain is not found. ? ? Dictated by: Min Gardner M.D. on 06/18/2022 at 15:26 ? ? Approved by: Min Gardner M.D. on 06/18/2022 at 15:27 ? thoracic spine: Radiologist's Impression: PROCEDURE:? XR THORACIC SPINE 2V ? INDICATIONS:? fall 2 days ago, pain between shoulders and upper lumbar spi ? TECHNIQUE:? 3 views of the thoracic spine were acquired.? ? COMPARISON:? [facility], , XR THORACIC SPINE 3V, 03/11/2021, 14:40. ? FINDINGS:? ? Bones:? No fractures or dislocations.? No suspicious bony lesions.? 12 pairs of ribs are noted, and appear intact where visualized.? ? Soft tissues:? No paravertebral stripe thickening.? ? ? IMPRESSION:? No compression fracture or traumatic subluxation found. ? ? Dictated by: Min Gardner M.D. on 06/18/2022 at 15:30 ? ? Approved by: Min Gardner M.D. on 06/18/2022 at 15:30 ? lumbar spine: Radiologist's Impression: PROCEDURE:? XR LUMBAR SPINE 2-3V ? INDICATIONS:? fall 2 days ago, pain between shoulders and upper lumbar spi ? TECHNIQUE:? 3 views of the lumbar spine were acquired.? ? COMPARISON:? None. ? FINDINGS:? ? Bones:? 5 [id number] vertebrae are present.? There is normal bony alignment.? No vertebral body compression fractures.? No suspicious bony lesions.? ? Soft tissues:? Overlying bowel gas pattern is normal.? No suspicious soft tissue calcifications.? ? ? IMPRESSION:? There is usio-ey-zkolavuo L5-S1 degenerative disc disease and facet osteoarthritis but no compression fracture or traumatic subluxation is seen. ? ? Dictated by: Min Gardner M.D. on 06/18/2022 at 15:30 ? ? Approved by: Min Gardner M.D. on 06/18/2022 at 15:31 ? MDM Narrative Medical decision making narrative: This is a 47-year-old female with history of cervical radiculopathy status post cervical spine fusion and thoracic HNP with thoracic radiculopathy secondary to degenerative joint disease who presents to the emergency department after reported fall at home 3 days ago. Patient was seen at [facility] 2 days ago and her records reflect negative x-rays which were repeated today including her cervical, thoracic and lumbar spine due to complaint of back pain and requests to include her cervical spine although she did not complain of neck pain. All of her imaging is negative for acute abnormality or change including her hardware since prior images. She is ambulatory, afebrile, and receive opiate pain medication prescription 2 days ago. She was given medications to include of Decadron steroid pack, muscle relaxer, ibuprofen and Tylenol and patient today explains that she has not been taking ibuprofen or Tylenol for pain but has been taking muscle relaxer and baclofen and tizanidine and not finding relief. This did not match her notes from the [facility] chart, patient was treated for her acute pain in the emergency department today with Percocet x1, Toradol, Robaxin, prednisone and a lidocaine patch. Her symptoms were improved afterwards, without focal neuro deficit, she is without weakness or urinary retention, dysuria or UA is positive for blood but patient is on her menses, negative for bacteria. She is afebrile, Suspect likely musculoskeletal etiology, pt is nontoxic appearing with no overt risk factors for epidural hematoma or abscess, caudal equina, and has a nonfocal neuro exam. Spine was non-tender to palpation, pt is ambulatory, without new weakness. Considered nephrolithiasis/pyelonephritis, epidural abscess/hematoma, ligamental injury, paraspinal or other muscular strain, chronic pain, osteoarthritis, viral illness, disk injury/herniation, degenerative disease, radiculopathy, and critical cord compression. Pt is neurovascularly intact distally, afebrile, without immunosuppression or evidence of infection, peritoneal signs, hypertensive crisis, incontinence, meningeal signs, or abdominal pain with low suspicion for AAA. Without findings concerning for caudal equina, transverse myelitis, spinal vascular malformation, osteomyelitis, degenerative myelopathy, or cord infarction. Recommend patient follow-up with her PCP, physical therapy, Dr. Ibarra and return for new or worsening changes. Patient is appropriate and amenable to discharge home. Vital signs are stable on repeat examination is unremarkable. Patient has been informed of results. Patient has been given strict return to ER precautions for any new or worsening symptoms. Patient understands to follow up closely with outpatient providers as instructed. Patient understands plan and agrees to discharge home. All questions and concerns answered at this time. <Malcom Caballero, DO - Last Filed: 06/18/22 16:31> Lab Data Labs: Lab Results 06/18/22 Range/Units 15:00 Urine RBC 1-5/hpf (0-5/HPF) Urine WBC 1-5/hpf (0-5/HPF) Ur Squamous Epith Cells 1-5 /hpf (0-5/HPF) Urine Bacteria Many (>30) H (None) Ur Culture Indicated? Specimen cultured Point of Care Testing Test Results Negative Urine Dip Bedside Urine Glucose Negative Bedside Urine Bilirubin - Negative Bedside Urine Ketone - Negative Urine Specific Zalma 1.015 Bedside Urine Occult Blood ++ Bedside Urine pH 7 Bedside Urine Protein - Negative Bedside Urine Urobilinogen - Negative Bedside Urine Nitrite - Negative Bedside Urine Leukocytes - Negative Esterase Discharge Plan Departure Patient Disposition: Home Clinical Impression: Thoracic radiculopathy due to degenerative joint disease of spine Strain of lumbar region Qualifiers: Encounter type: initial encounter Qualified Code(s): S39.012A - Strain of muscle, fascia and tendon of lower back, initial encounter Instructions: DI for Back Pain With Sciatica, DI for Back Spasm, DI for Back Strain or Sprain Activity Restrictions/Additional Instructions: *You have been diagnosed with acute on chronic back injury causing muscle spasms and worsening pain. Please take the steroids for the next 5 days to help you with your symptoms, use muscle relaxers as needed, use caution when taking tizanidine or baclofen with a muscle relaxer as this is a dangerous combination. Please take 800 mg of ibuprofen every 8 hours with 975 mg of Tylenol to help treat the pain component of your low back pain. Use the muscle relaxer for spasms, and reduce your activity to allow for healing. Please follow-up with your primary care provider for referral to physical therapy and a new evaluation of your chronic injury. I hope you start feeling better soon, you may follow-up with Dr. Ibarra if this is what physical therapy recommends for you. Your x-ray of her lumbar spine shows degenerative disc disease and osteoarthritis but no new fracture or traumatic injury, thoracic x-ray shows no evidence of acute injury or abnormality when compared with prior x-rays. Cervical spine x-ray shows prior fusion plate with no evidence of loosening or hardware abnormality and no acute trauma is seen. Please follow-up with your primary care provider, continue to use heat, rest, medications and topical medications to help you with your pain. Return for new or worsening condition. I received your records from [facility], you received opiate pain medication at that time and I am unable to prescribe for you more this at this point. Please follow-up with your primary care provider if you need additional medications beyond ibuprofen, muscle relaxers and a steroid pack. I hope you feel better soon, try using lidocaine patches or other topical adjunct to help with your pain. *What to do: *Please continue to take your regular medications as directed. [x ] New medication prescriptions sent to your pharmacy: [[facility]] [ ] New medication written as a paper prescription [ ] No new medications given *Please follow up with your primary care provider in 2-3 days, call for an appointment. Let them know you were seen in the Emergency Department and that we asked that you be seen for follow-up. We will electronically transmit a record of today's note if your PCP is in our system *If you do not have a primary care provider please contact [phone] to establish care with one of [facility] primary care providers. *Return to Emergency Department if you should have any new, worsening, or concerning symptoms, such as [fever greater than 101F, chills, worsening pain, persistent vomiting or other bothersome symptoms]. Prescriptions: New prednisone 20 mg tablet 40 mg PO DAILY 5 Days Qty: 10 0RF methocarbamol 750 mg tablet 750 mg PO Q8H PRN (Reason: muscle spasm) Qty: 20 0RF ibuprofen 800 mg tablet 800 mg PO Q8H PRN (Reason: pain) Qty: 30 0RF No Action tizanidine 4 mg capsule 4 mg PO BEDTIME PRN omeprazole 20 mg capsule,delayed release(DR/EC) 20 mg PO BID baclofen 10 mg tablet 10 mg PO .PRN Label Comments: take 1 TO 2 tablet by mouth three times a day if needed duloxetine 30 mg capsule,delayed release(DR/EC) 30 mg PO DAILY Label Comments: take 3 capsule by mouth daily losartan 50 mg tablet 50 mg PO DAILY Referrals: [facility] [Outside] Daniel Ibarra DO [Physician] - Malcom Mendenhall MD [Primary Care Provider] - Visit Report Forms: Patient Portal/API <Malcom Caballero DO - Last Filed: 06/18/22 16:31> Cosign ED Attending Cosignature Attestation: Dr Caballero Co-Sign Statement: I was available for consultation during this patient's emergency department visit. This chart is signed by myself for administrative purposes only. I did not have direct contact with this patient during this visit. They were seen independently by the [facility].
--- NOTE | 2022-06-18 14:47 | DI.RAD.S_ITS ---
PROCEDURE: XR CERVICAL SPINE 2V OR 3V INDICATIONS: worse pain TECHNIQUE: 3 view(s) of the cervical spine were acquired. COMPARISON: [facility], CR, XR CERVICAL SPINE 4V OR 5V, 06/02/2022, 8:23. [facility], CR, XR CERVICAL SPINE 4V OR 5V, 06/25/2020, 13:40. FINDINGS: Bones: No fractures or dislocations to the T1 level. The lateral masses of C1 appear intact on the odontoid view. No suspicious bony lesions. Soft tissues: No prevertebral soft tissue swelling. IMPRESSION: Prior anterior fusion plate at C6-C7 shows no evidence of loosening. No subluxation is found and no acute trauma is seen. Source of worsening pain is not found. Dictated by: Min Gardner M.D. on 06/18/2022 at 15:26 Approved by: Min Gardner M.D. on 06/18/2022 at 15:27
[2022-06-18 15:53] VITALS: BP 129/73; PULSE 68; RESP 16; O2SAT 96
[2022-06-18 16:06] LABS: Bacteria Urine Many (>30); Culture Indicated Urine Specimen Cultured; RBC Urine 1-5/HPF (0-5/HPF); Squamous Epithelial Cell Urine 1-5 /HPF (0-5/HPF); WBC Urine 1-5/HPF (0-5/HPF)
== END 2022-06-18 15:53 | disposition home or self-care (01) ==
PROVIDERS: Emergency Provider Nurse Practitioner Critical Care Medicine; PCP Preventive Medicine Occupational Medicine
DX: S39.012A Strain of muscle, fascia and tendon of lower back, initial encounter (principal); M47.814 Spondylosis without myelopathy or radiculopathy, thoracic region; M54.2 Cervicalgia; N39.0 Urinary tract infection, site not specified; Y99.0 Civilian activity done for income or pay; W19.XXXA Unspecified fall, initial encounter
CPT/HCPCS: 72040; 72070; 72100; 81003; 81015; 81025; 87086; 96372; 99283; 99284; J1885

== ENCOUNTER 2022-06-29 08:57 | Outpatient (CLI) | payer OTHER, SELFPAY ==
[2022-06-29 09:07] VITALS: BP 139/79; PULSE 86; RESP 16; TEMP 36.6; O2SAT 98
[2022-06-29 10:11] LABS: Appearance Urine UA CLOUDY; Bilirubin Urine UA NEGATIVE (NEGATIVE); Color Urine UA YELLOW; Glucose Urine UA NEGATIVE (Negative); Ketones Urine UA NEGATIVE (NEGATIVE); Leukocyte Esterase Urine UA TRACE (NEGATIVE); Nitrite Urine UA NEGATIVE (Negative); Occult Blood Urine UA 3+ (Negative); Protein Urine UA 1+ (Negative); Specific Gravity Urine UA >=1.030 (1.000-1.035); Urobilinogen Urine UA 0.2 E.U./dL (0.2)
[2022-06-29 10:19] LABS: Bacteria Urine None Seen; Culture Indicated Urine Specimen Cultured; RBC Urine >100/HPF (0-5/HPF); Squamous Epithelial Cell Urine 1-5 /HPF (0-5/HPF); WBC Urine 1-5/HPF (0-5/HPF)
--- NOTE | 2022-06-29 10:30 | PC.NURSE ---
Patient reports recent UTI - 1 week ago. No current symptoms but she also didn't have any initial symptoms previously. Reports finished her antibiotics a week ago. Urine dip with leuks and protein +. UA sent to lab with same result and sent for culture. Patient injection postponed due to lab results. Instructions to follow up with her PCP and reschedule. Verbalized understanding.
== END 2022-06-29 10:35 | disposition home or self-care (01) ==
LOC: RAD 08:57
PROVIDERS: PCP Preventive Medicine Occupational Medicine; Referring Provider Physical Medicine & Rehabilitation; Visit Provider Physical Medicine & Rehabilitation
DX: M54.12 Radiculopathy, cervical region (principal)
CPT/HCPCS: 81001; 87086; J1100; J2250; J3490

== ENCOUNTER 2022-07-22 08:39 | Outpatient (CLI) | payer OTHER, SELFPAY ==
[2022-07-22] VITALS (8 sets, daily range): BP systolic 137–167; BP diastolic 87–117; PULSE 71–81; RESP 12–20; TEMP 36.1; O2SAT 97–100
--- NOTE | 2022-07-22 08:41 | DI.RAD.S_ITS ---
PROCEDURE: PAIN C/T INTERLAMINAR INJECT INDICATIONS: SPONDYLOSIS COMPARISON: [facility], , PAIN C/T INTERLAMINAR INJECT, 05/26/2021, 11:29. FINDINGS: Fluoroscopic spot filming was performed to verify placement of a spinal needle at the C7-T1 level, as labeled on the films. Appropriate location of the needle tip was confirmed by injection of iodinated contrast. IMPRESSION: Intraprocedural examination within normal limits. Dictated by: Henrique Chiang M.D. on 07/22/2022 at 14:59 Approved by: Henrique Chiang M.D. on 07/22/2022 at 14:59
[2022-07-22] MEDS: MIDAZOLAM 2 MG/2 ML VIAL IV (09:55)
[2022-07-22] MEDS: BUPIVACAINE 0.5% (PF) 10 ML VIAL 5 ML SUBCUT (10:00)
[2022-07-22] MEDS: IOPAMIDOL 15 ML VIAL 3 ML INJ (10:00)
[2022-07-22] MEDS: DEXAMETHASONE 10 MG/ML VIAL 30 MG INJ (10:00)
--- NOTE | 2022-07-22 10:13 | P.PCN_ITS ---
Date/Time/Diagnoses Date of procedure: 07/22/22 Time of procedure: 10:13 Pre-procedure diagnosis: 1. CERVICAL STENOSIS, 2. CERVICAL HNP WITH UPPER EXTREMITY RADICULAR FEATURES Procedure Notes Procedure: FLUORSCOPICALLY GUIDED CONTRAST CONTROLLED INTERLAMINAR EPIDURAL STEROID INJECTION - C7/T1 TL LIEN Indications: Andreina is referred by Dr. Mendenhall for treatment of Cervical Stenosis. Physician: Daniel Ibarra Total Fluoroscopy time (seconds): 24 Total sedation minutes: 12 Complications: none Procedure in detail & Post-procedure care: DESCRIPTION OF PROCEDURE Following review of allergy and review of potential side effects and complications, including, but not necessarily limited to, infection, allergic reaction, local tissue breakdown, temporary as well as permanent nerve injury, stroke, paralysis, and possible , the patient indicated that patient understood and agreed to proceed. An informed consent document was signed by the patient, witnessed by a nurse, and placed in the patient's chart. Additionally, other treatment options including modalities, medications, and physical therapy were reviewed with the patient. After review of previous anaesthesic history and IV conscious sedation the patient was deemed safe to proceed with todays procedure with IV conscious sedation as ASA class II designation. Safety time-out was performed to confirm patient ID, procedure to be performed and site of procedure. IV sedation was accomplished with a combination of 2mg of Versed administered by the RN after DO order, titrated to patient comfort during the course of the procedure while the patient remained responsive to all verbal commands. In the prone position, following sterile prep and drape of the cervical region, the C7/T1 translaminar space was identified fluoroscopically. The skin was anesthetized via a 25-gauge 1.5-inch needle with 1% lidocaine solution. At this point, a 25-gauge, 2.5-inch short bevel spinal needle was atraumatically introduced and advanced under fluoroscopic guidance into epidural space at the C7/T1 translaminar space. Depth was confirmed on lateral view. Radiological data, including multiple fluoroscopic views of the cervical spine, reveal a spinal needle at the C7/T1 translaminar space. Lateral views then show placement of the needle in the epidural space. Subsequent views show contrast material flowing superiorly and inferiorly in the epidural space. DSA fluor oscopy with live contrast injection, once again, confirmed no vascular or intrathecal uptake. At this point, using loss of resistance technique with saline and air, the epidural space was entered. Following negative aspiration, injection of approximately 1.5 cc of Isovue-200 with live fluoroscopy in the AP view confirmed epidural flow in the epidural space without vascular or intrathecal uptake observed. Subsequently, a test dose of 1 cc of 1% lidocaine solution was injected and patient was observed for two minutes without signs or symptoms of complications, including abdominal pain, shortness of breath, bilateral upper or lower extremity weakness, nausea and vomiting, prior to steroid injection. At this point, 3cc or 30mg of dexamethasone was then injected without incident. The patient tolerated the procedure well without signs or symptoms of complications prior to transfer to the recovery area for further monitoring The patient was then transferred to the recovery area where they were observed for an appropriate period of time after the injection. The patient reported a VAS score of 6 prior to the procedure and a post-procedure VAS of 0 POST OP INSTRUCTIONS The patient was provided a Pain Log to continue to record the patient's response to the target-specific procedure prior to the patient's follow-up visit with the referring physician. Additionally, specific post-injection care instructions and a contact number to our office were provided if concerns arise regarding possible complications associated with the procedure are suspected.
== END 2022-07-22 10:30 | disposition home or self-care (01) ==
LOC: RAD 08:40
PROVIDERS: PCP Preventive Medicine Occupational Medicine; Referring Provider Physical Medicine & Rehabilitation; Visit Provider Physical Medicine & Rehabilitation
DX: M48.02 Spinal stenosis, cervical region (principal); M50.13 Cervical disc disorder with radiculopathy, cervicothoracic region
CPT/HCPCS: 62321; 99152; J1100; J2250; J3490

== ENCOUNTER 2022-11-11 08:29 | Outpatient (CLI) | payer OTHER, SELFPAY ==
[2022-11-11] VITALS (8 sets, daily range): BP systolic 133–157; BP diastolic 74–94; PULSE 58–77; RESP 15–20; TEMP 36.1; O2SAT 98–100
--- NOTE | 2022-11-11 08:30 | DI.RAD.S_ITS ---
PROCEDURE: PAIN C/T INTERLAMINAR INJECT INDICATIONS: SPINAL STENOSIS COMPARISON: [facility], , PAIN C/T INTERLAMINAR INJECT, 07/22/2022, 10:58. FINDINGS: Fluoroscopic spot filming was performed to verify placement of a spinal needle at the T11-T12 level, as labeled on the films. Appropriate location of the needle tip was confirmed by injection of iodinated contrast. IMPRESSION: Intraprocedural examination within normal limits. Dictated by: Henrique Chiang M.D. on 11/11/2022 at 11:39 Approved by: Henrique Chiang M.D. on 11/11/2022 at 11:40
[2022-11-11] MEDS: MIDAZOLAM 2 MG/2 ML VIAL IV (09:32)
[2022-11-11] MEDS: BUPIVACAINE 0.25% (PF) VIAL 2 ML INJ (09:38)
[2022-11-11] MEDS: DEXAMETHASONE 10 MG/ML VIAL 30 MG INJ (09:38)
[2022-11-11] MEDS: IOPAMIDOL 15 ML VIAL 3 ML INJ (09:39)
--- NOTE | 2022-11-11 09:50 | P.PCN_ITS ---
Date/Time/Diagnoses Date of procedure: 11/11/22 Time of procedure: 09:50 Pre-procedure diagnosis: Thoracic stenosis with HNP Post-procedure diagnosis: same Procedure Notes Procedure: Fluoroscopic guided, contrast controlled T11/12 translaminar epidural steroid injection with conscious sedation. Indications: Andreina is referred by Dr. Mendenhall for treatment of thoracic DDD/DJD with radiculopathy Physician: Daniel Ibarra Total Fluoroscopy time (seconds): 14 Total sedation minutes: 14 Complications: none Procedure in detail & Post-procedure care: DESCRIPTION OF PROCEDURE Fluoroscopic guided, contrast controlled T11/12 translaminar epidural steroid injection with conscious sedation. Following review of allergy review potential side effects and complications, including, but not necessarily limited to, infection, allergic reaction, local tissue breakdown, temporary as well as permanent nerve injury, stroke, paralysis and possible , the patient indicated that they understood and agreed to proceed. An informed consent document was signed by the patient, witnessed by the nurse, and placed in the patient's chart. Additionally other treatment options including modalities, medications and physical therapy were reviewed with the patient. After review of previous anaesthesic history and IV conscious sedation the patient was deemed safe to proceed with today's procedure with IV conscious sedation as ASA class II designation. Safety time-out was performed to confirm patient ID, procedure to be performed and site of procedure. IV sedation was accomplished with a combination of 2mg of Versed administered by the RN after DO order, titrated to patient comfort during the course of the procedure while the patient remained responsive to all verbal commands In the prone position, following sterile prep and drape of the thoracic region the T11/12 translaminar space was identified fluoroscopically. The skin was anesthetized via 25 gauge 1.5inch needle with 1% lidocaine solution. At this po int a 22gauge epidural needle was atraumatically introduced and advanced under fluoroscopic guidance into the region of the T11/12 translaminar space depth was confirmed on lateral view. Radiographic data, including multiple fluoroscopic views of the thoracic spine, reveals spinal needle at the T11/12 translaminar space. Lateral views then showed the placement of the needle in the epidural space. Subsequent view show contrast material flowing superiorly and inferiorly in the epidural space. No vascular or intrathecal uptake is observed. At this point using loss of resistance technique with saline and the epidural space was entered. This was confirmed followed negative aspiration and injection of approximately 1.5cc of Isovue 200 showed excellent epidural flow without vascular or intrathecal uptake. At this point, 1 cc of 1% lidocaine solution was admitted as a test dose and the patient was observed for an appropriate period of time without signs or symptoms of complications, including abdominal pain, shortness of breath, bilateral upper and lower extremity weakness, nausea and vomiting, prior to steroid injection. Subsequently, 3cc or 30mg of dexamethasone was then injected without incident. The patient tolerated the procedure well without signs of complications and subsequently was transferred to the recovery room for further monitoring. The patient was then transferred to the recovery area with their observed for an appropriate time after the injection. Patient reported a VAS score of 7 prior to the procedure and post-procedure VAS of 2.
== END 2022-11-11 10:13 | disposition home or self-care (01) ==
LOC: RAD 08:29
PROVIDERS: PCP Preventive Medicine Occupational Medicine; Referring Provider Physical Medicine & Rehabilitation; Visit Provider Physical Medicine & Rehabilitation
DX: M48.04 Spinal stenosis, thoracic region (principal); M51.24 Other intervertebral disc displacement, thoracic region
CPT/HCPCS: 62321; 99152; J1100; J2250; J3490

== ENCOUNTER → 2023-03-31 10:23 | Outpatient (CLI) | payer OTHER, SELFPAY | PROVIDERS: Family Provider Preventive Medicine Occupational Medicine; PCP Preventive Medicine Occupational Medicine; Referring Provider Physical Medicine & Rehabilitation; Visit Provider Physical Medicine & Rehabilitation | DX: Z98.1 Arthrodesis status (principal); M54.12 Radiculopathy, cervical region | CPT/HCPCS: 95886; 95912 ==

== ENCOUNTER 2023-06-16 08:49 | Outpatient (CLI) | payer OTHER, SELFPAY ==
[2023-06-16] VITALS (9 sets, daily range): BP systolic 92–135; BP diastolic 50–79; PULSE 71–79; RESP 16–20; TEMP 36.1; O2SAT 96–100
--- NOTE | 2023-06-16 09:15 | DI.RAD.S_ITS ---
PROCEDURE: PAIN C/T INTERLAMINAR INJECT INDICATIONS: SPINAL STENOSIS COMPARISON: [facility], , PAIN C/T INTERLAMINAR INJECT, 11/11/2022, 9:32. FINDINGS: Fluoroscopic spot filming was performed to verify placement of spinal needles at the C7-T1 level(s), as labeled on the films. Appropriate location(s) of the needle tip(s) was confirmed by injection of iodinated contrast. IMPRESSION: Fluoroscopic support for translaminar epidural steroid injection at C7-T1. Please see separate procedure note for further details. Dictated by: Bernardo South M.D. on 06/16/2023 at 10:54 Approved by: Bernardo South M.D. on 06/16/2023 at 10:55
[2023-06-16] MEDS: MIDAZOLAM 2 MG/2 ML VIAL IV (09:30)
[2023-06-16] MEDS: BUPIVACAINE 0.25% (PF) VIAL 2 ML INJ (09:35)
[2023-06-16] MEDS: DEXAMETHASONE 10 MG/ML VIAL 20 MG INJ (09:36)
[2023-06-16] MEDS: iopamidoL 15 ML VIAL 3 ML INJ (09:37)
--- NOTE | 2023-06-16 09:47 | P.PCN_ITS ---
Date/Time/Diagnoses Date of procedure: 06/16/23 Time of procedure: 09:47 Pre-procedure diagnosis: 1. CERVICAL STENOSIS, 2. CERVICAL HNP WITH UPPER EXTREMITY RADICULAR FEATURES Procedure Notes Procedure: FLUORSCOPICALLY GUIDED CONTRAST CONTROLLED INTERLAMINAR EPIDURAL STEROID INJECTION - C7/T1 TL LIEN Indications: Andreina is referred by Dr. Mendenhall for treatment of Cervical Stenosis. Physician: Daniel Ibarra Total Fluoroscopy time (seconds): 27 Total sedation minutes: 12 Complications: none Procedure in detail & Post-procedure care: DESCRIPTION OF PROCEDURE Following review of allergy and review of potential side effects and complications, including, but not necessarily limited to, infection, allergic reaction, local tissue breakdown, temporary as well as permanent nerve injury, stroke, paralysis, and possible , the patient indicated that patient understood and agreed to proceed. An informed consent document was signed by the patient, witnessed by a nurse, and placed in the patient's chart. Additionally, other treatment options including modalities, medications, and physical therapy were reviewed with the patient. After review of previous anaesthesic history and IV conscious sedation the patient was deemed safe to proceed with todays procedure with IV conscious sedation as ASA class II designation. Safety time-out was performed to confirm patient ID, procedure to be performed and site of procedure. IV sedation was accomplished with a combination of 2mg of Versed administered by the RN after DO order, titrated to patient comfort during the course of the procedure while the patient remained responsive to all verbal commands. In the prone position, following sterile prep and drape of the cervical region, the C7/T1 translaminar space was identified fluoroscopically. The skin was anesthetized via a 25-gauge 1.5-inch needle with 1% lidocaine solution. At this point, a 25-gauge, 2.5-inch short bevel spinal needle was atraumatically introduced and advanced under fluoroscopic guidance into epidural space at the C7/T1 translaminar space. Depth was confirmed on lateral view. Radiological data, including multiple fluoroscopic views of the cervical spine, reveal a spinal needle at the C7/T1 translaminar space. Lateral views then show placement of the needle in the epidural space. Subsequent views show contrast material flowing superiorly and inferiorly in the epidural space. DSA fluor oscopy with live contrast injection, once again, confirmed no vascular or intrathecal uptake. At this point, using loss of resistance technique with saline and air, the epidural space was entered. Following negative aspiration, injection of approximately 1.5 cc of Isovue-200 with live fluoroscopy in the AP view confirmed epidural flow in the epidural space without vascular or intrathecal uptake observed. Subsequently, a test dose of 1 cc of 1% lidocaine solution was injected and patient was observed for two minutes without signs or symptoms of complications, including abdominal pain, shortness of breath, bilateral upper or lower extremity weakness, nausea and vomiting, prior to steroid injection. At this point, 2cc or 20mg of dexamethasone was then injected without incident. The patient tolerated the procedure well without signs or symptoms of complications prior to transfer to the recovery area for further monitoring The patient was then transferred to the recovery area where they were observed for an appropriate period of time after the injection. The patient reported a VAS score of 6 prior to the procedure and a post-procedure VAS of 0 POST OP INSTRUCTIONS The patient was provided a Pain Log to continue to record the patient's response to the target-specific procedure prior to the patient's follow-up visit with the referring physician. Additionally, specific post-injection care instructions and a contact number to our office were provided if concerns arise regarding possible complications associated with the procedure are suspected.
== END 2023-06-16 10:05 | disposition home or self-care (01) ==
LOC: RAD 08:50
PROVIDERS: Family Provider Preventive Medicine Occupational Medicine; PCP Preventive Medicine Occupational Medicine; Referring Provider Physical Medicine & Rehabilitation; Visit Provider Physical Medicine & Rehabilitation
DX: M48.02 Spinal stenosis, cervical region (principal); M50.13 Cervical disc disorder with radiculopathy, cervicothoracic region
CPT/HCPCS: 62321; 99152; J1100; J2250; J3490

== ENCOUNTER 2024-03-20 09:22 | Outpatient (CLI) | payer OTHER, SELFPAY ==
[2024-03-20] VITALS (9 sets, daily range): BP systolic 109–142; BP diastolic 56–76; PULSE 60–68; RESP 14–18; TEMP 36.2; O2SAT 96–100
--- NOTE | 2024-03-20 10:15 | DI.RAD.S_ITS ---
PROCEDURE: PAIN C/T INTERLAMINAR INJECT INDICATIONS: SPONDYLOSIS COMPARISON: [facility], , PAIN C/T INTERLAMINAR INJECT, 06/16/2023, 10:33. FINDINGS: Fluoroscopic spot filming was performed to verify placement of spinal needles at the C7-T1 level(s), as labeled on the films. Appropriate location(s) of the needle tip(s) was confirmed by injection of iodinated contrast. IMPRESSION: Contrast and needle localization overlying C7-T1. Dictated by: Alejandra Brewer M.D. on 03/20/2024 at 17:46 Approved by: Alejandra Brewer M.D. on 03/20/2024 at 17:46
[2024-03-20] MEDS: MIDAZOLAM 2 MG/2 ML VIAL IV (10:44)
[2024-03-20] MEDS: iopamidoL 15 ML VIAL 3 ML INJ (10:52)
[2024-03-20] MEDS: BUPIVACAINE 0.25% (PF) VIAL 2 ML INJ (10:53)
[2024-03-20] MEDS: DEXAMETHASONE 10 MG/ML VIAL 20 MG INJ (10:53)
--- NOTE | 2024-03-20 11:04 | P.PCN_ITS ---
Date/Time/Diagnoses Date of procedure: 03/20/24 Time of procedure: 11:04 Pre-procedure diagnosis: 1. CERVICAL STENOSIS, 2. CERVICAL HNP WITH UPPER EXTREMITY RADICULAR FEATURES Procedure Notes Procedure: FLUORSCOPICALLY GUIDED CONTRAST CONTROLLED INTERLAMINAR EPIDURAL STEROID INJECTION - C7/T1 TL LIEN Indications: Andreina is referred by Dr. Mendenhall for treatment of Cervical Stenosis. Physician: Daniel Ibarra Total Fluoroscopy time (seconds): 23 Total sedation minutes: 14 Complications: none Procedure in detail & Post-procedure care: DESCRIPTION OF PROCEDURE Following review of allergy and review of potential side effects and complications, including, but not necessarily limited to, infection, allergic reaction, local tissue breakdown, temporary as well as permanent nerve injury, stroke, paralysis, and possible , the patient indicated that patient understood and agreed to proceed. An informed consent document was signed by the patient, witnessed by a nurse, and placed in the patient's chart. Additionally, other treatment options including modalities, medications, and physical therapy were reviewed with the patient. After review of previous anaesthesic history and IV conscious sedation the patient was deemed safe to proceed with todays procedure with IV conscious sedation as ASA class II designation. Safety time-out was performed to confirm patient ID, procedure to be performed and site of procedure. IV sedation was accomplished with a combination of 2mg of Versed administered by the RN after DO order, titrated to patient comfort during the course of the procedure while the patient remained responsive to all verbal commands. In the prone position, following sterile prep and drape of the cervical region, the C7/T1 translaminar space was identified fluoroscopically. The skin was anesthetized via a 25-gauge 1.5-inch needle with 1% lidocaine solution. At this point, a 25-gauge, 2.5-inch short bevel spinal needle was atraumatically introduced and advanced under fluoroscopic guidance into epidural space at the C7/T1 translaminar space. Depth was confirmed on lateral view. Radiological data, including multiple fluoroscopic views of the cervical spine, reveal a spinal needle at the C7/T1 translaminar space. Lateral views then show placement of the needle in the epidural space. Subsequent views show contrast material flowing superiorly and inferiorly in the epidural space. DSA fluor oscopy with live contrast injection, once again, confirmed no vascular or intrathecal uptake. At this point, using loss of resistance technique with saline and air, the epidural space was entered. Following negative aspiration, injection of approximately 1.5 cc of Isovue-200 with live fluoroscopy in the AP view confirmed epidural flow in the epidural space without vascular or intrathecal uptake observed. Subsequently, a test dose of 1 cc of 1% lidocaine solution was injected and patient was observed for two minutes without signs or symptoms of complications, including abdominal pain, shortness of breath, bilateral upper or lower extremity weakness, nausea and vomiting, prior to steroid injection. At this point, 2cc or 20mg of dexamethasone was then injected without incident. The patient tolerated the procedure well without signs or symptoms of complications prior to transfer to the recovery area for further monitoring The patient was then transferred to the recovery area where they were observed for an appropriate period of time after the injection. The patient reported a VAS score of 7 prior to the procedure and a post-procedure VAS of 1. POST OP INSTRUCTIONS The patient was provided a Pain Log to continue to record the patient's response to the target-specific procedure prior to the patient's follow-up visit with the referring physician. Additionally, specific post-injection care instructions and a contact number to our office were provided if concerns arise regarding possible complications associated with the procedure are suspected.
== END 2024-03-20 11:17 | disposition home or self-care (01) ==
LOC: RAD 09:23
PROVIDERS: Family Provider Preventive Medicine Occupational Medicine; PCP Preventive Medicine Occupational Medicine; Referring Provider Physical Medicine & Rehabilitation; Visit Provider Physical Medicine & Rehabilitation
DX: M48.02 Spinal stenosis, cervical region (principal); M50.13 Cervical disc disorder with radiculopathy, cervicothoracic region
CPT/HCPCS: 62321; 99152; J1100; J2250; J3490

== ENCOUNTER 2024-10-11 09:06 | Outpatient (CLI) | payer OTHER, SELFPAY ==
[2024-10-11] VITALS (11 sets, daily range): BP systolic 130–155; BP diastolic 79–94; PULSE 70–83; RESP 12–19; TEMP 36.9; O2SAT 96–100
[2024-10-11] MEDS: MIDAZOLAM 2 MG/2 ML VIAL IV (10:37)
[2024-10-11] MEDS: BUPIVACAINE 0.25% (PF) VIAL 2 ML INJ (10:42)
[2024-10-11] MEDS: DEXAMETHASONE 10 MG/ML VIAL 30 MG INJ (10:42)
[2024-10-11] MEDS: iopamidoL 15 ML VIAL 3 ML INJ (10:43)
[2024-10-11] MEDS: MIDAZOLAM 2 MG/2 ML VIAL 1 MG IV (10:47)
--- NOTE | 2024-10-11 11:08 | P.PCN_ITS ---
Date/Time/Diagnoses Date of procedure: 10/11/24 Time of procedure: 11:08 Pre-procedure diagnosis: 1. CERVICAL STENOSIS, 2. CERVICAL HNP WITH UPPER EXTREMITY RADICULAR FEATURES Procedure Notes Procedure: FLUORSCOPICALLY GUIDED CONTRAST CONTROLLED INTERLAMINAR EPIDURAL STEROID INJECTION - C7/T1 TL LIEN Indications: Marco A is referred by Dr. Mendenhall for treatment of Cervical Stenosis. Physician: Daniel Ibarra Total Fluoroscopy time (seconds): 47 Total sedation minutes: 27 Complications: none Procedure in detail & Post-procedure care: DESCRIPTION OF PROCEDURE Following review of allergy and review of potential side effects and complications, including, but not necessarily limited to, infection, allergic reaction, local tissue breakdown, temporary as well as permanent nerve injury, stroke, paralysis, and possible , the patient indicated that patient understood and agreed to proceed. An informed consent document was signed by the patient, witnessed by a nurse, and placed in the patient's chart. Additionally, other treatment options including modalities, medications, and physical therapy were reviewed with the patient. After review of previous anaesthesic history and IV conscious sedation the patient was deemed safe to proceed with todays procedure with IV conscious sedation as ASA class II designation. Safety time-out was performed to confirm patient ID, procedure to be performed and site of procedure. IV sedation was accomplished with a combination of 3mg of Versed administered by the RN after DO order, titrated to patient comfort during the course of the procedure while the patient remained responsive to all verbal commands. In the prone position, following sterile prep and drape of the cervical region, the C7/T1 translaminar space was identified fluoroscopically. The skin was anesthetized via a 25-gauge 1.5-inch needle with 1% lidocaine solution. At this point, a 25-gauge, 2.5-inch short bevel spinal needle was atraumatically introduced and advanced under fluoroscopic guidance into epidural space at the C7/T1 translaminar space. Depth was confirmed on lateral view. Radiological data, including multiple fluoroscopic views of the cervical spine, reveal a spinal needle at the C7/T1 translaminar space. Lateral views then show placement of the needle in the epidural space. Subsequent views show contrast material flowing superiorly and inferiorly in the epidural space. DSA fluo roscopy with live contrast injection, once again, confirmed no vascular or intrathecal uptake. At this point, using loss of resistance technique with saline and air, the epidural space was entered. Following negative aspiration, injection of approximately 1.5 cc of Isovue-200 with live fluoroscopy in the AP view confirmed epidural flow in the epidural space without vascular or intrathecal uptake observed. Subsequently, a test dose of 1 cc of 1% lidocaine solution was injected and patient was observed for two minutes without signs or symptoms of complications, including abdominal pain, shortness of breath, bilateral upper or lower extremity weakness, nausea and vomiting, prior to steroid injection. At this point, 3cc or 30mg of dexamethasone was then injected without incident. The patient tolerated the procedure well without signs or symptoms of complications prior to transfer to the recovery area for further monitoring The patient was then transferred to the recovery area where they were observed for an appropriate period of time after the injection. The patient reported a VAS score of 6 prior to the procedure and a post-procedure VAS of 0 POST OP INSTRUCTIONS The patient was provided a Pain Log to continue to record the patient's response to the target-specific procedure prior to the patient's follow-up visit with the referring physician. Additionally, specific post-injection care instructions and a contact number to our office were provided if concerns arise regarding possible complications associated with the procedure are suspected.
== END 2024-10-11 11:20 | disposition home or self-care (01) ==
PROVIDERS: Family Provider Preventive Medicine Occupational Medicine; PCP Preventive Medicine Occupational Medicine; Referring Provider Physical Medicine & Rehabilitation; Visit Provider Physical Medicine & Rehabilitation
DX: M48.02 Spinal stenosis, cervical region (principal); M50.13 Cervical disc disorder with radiculopathy, cervicothoracic region
CPT/HCPCS: 62321; 99152; 99153; J1100; J2250; J3490

== ENCOUNTER 2025-06-18 09:05 | Outpatient (CLI) | payer BC, SELFPAY ==
[2025-06-18] VITALS (8 sets, daily range): BP systolic 122–151; BP diastolic 81–98; PULSE 72–90; RESP 15–20; TEMP 35.8; O2SAT 97–99
[2025-06-18] MEDS: MIDAZOLAM 2 MG/2 ML VIAL IV (09:56)
--- NOTE | 2025-06-18 10:12 | PM.PROC.IR.1 ---
Date/Time/Diagnoses Date of procedure: 06/18/25 Time of procedure: 10:13 Pre-procedure diagnosis: 1. CERVICAL STENOSIS, 2. CERVICAL HNP WITH UPPER EXTREMITY RADICULAR FEATURES Procedure Notes Procedure: FLUORSCOPICALLY GUIDED CONTRAST CONTROLLED INTERLAMINAR EPIDURAL STEROID INJECTION - C7/T1 TL LIEN Indications: Andreina is referred for treatment of Cervical Stenosis. Physician: Daniel Ibarra Total Fluoroscopy time (seconds): 30 Total sedation minutes: 12 Complications: none Procedure in detail & Post-procedure care: DESCRIPTION OF PROCEDURE Following review of allergy and review of potential side effects and complications, including, but not necessarily limited to, infection, allergic reaction, local tissue breakdown, temporary as well as permanent nerve injury, stroke, paralysis, and possible , the patient indicated that patient understood and agreed to proceed. An informed consent document was signed by the patient, witnessed by a nurse, and placed in the patient's chart. Additionally, other treatment options including modalities, medications, and physical therapy were reviewed with the patient. After review of previous anaesthesic history and IV conscious sedation the patient was deemed safe to proceed with todays procedure with IV conscious sedation as ASA class II designation. Safety time-out was performed to confirm patient ID, procedure to be performed and site of procedure. IV sedation was accomplished with a combination of 2mg of Versed administered by the RN after DO order, titrated to patient comfort during the course of the procedure while the patient remained responsive to all verbal commands. In the prone position, following sterile prep and drape of the cervical region, the C7/T1 translaminar space was identified fluoroscopically. The skin was anesthetized via a 25-gauge 1.5-inch needle with 1% lidocaine solution. At this point, a 25-gauge, 2.5-inch short bevel spinal needle was atraumatically introduced and advanced under fluoroscopic guidance into epidural space at the C7/T1 translaminar space. Depth was confirmed on lateral view. Radiological data, including multiple fluoroscopic views of the cervical spine, reveal a spinal needle at the C7/T1 translaminar space. Lateral views then show placement of the needle in the epidural space. Subsequent views show contrast material flowing superiorly and inferiorly in the epidural space. DSA fluoroscopy with live contrast injection, once again, confirmed no vascular or intrathecal uptake. At this point, using loss of resistance technique with saline and air, the epidural space was entered. Following negative aspiration, injection of approximately 1.5 cc of Isovue-200 with live fluoroscopy in the AP view confirmed epidural flow in the epidural space without vascular or intrathecal uptake observed. Subsequently, a test dose of 1 cc of 1% lidocaine solution was injected and patient was observed for two minutes without signs or symptoms of complications, including abdominal pain, shortness of breath, bilateral upper or lower extremity weakness, nausea and vomiting, prior to steroid injection. At this point, 2cc or 20mg of dexamethasone was then injected without incident. The patient tolerated the procedure well without signs or symptoms of complications prior to transfer to the recovery area for further monitoring The patient was then transferred to the recovery area where they were observed for an appropriate period of time after the injection. The patient reported a VAS score of 6 prior to the procedure and a post-procedure VAS of 0 POST OP INSTRUCTIONS The patient was provided a Pain Log to continue to record the patient's response to the target-specific procedure prior to the patient's follow-up visit with the referring physician. Additionally, specific post-injection care instructions and a contact number to our office were provided if concerns arise regarding possible complications associated with the procedure are suspected.
== END 2025-06-18 10:35 | disposition home or self-care (01) ==
LOC: RAD 09:06
PROVIDERS: Referring Provider Physical Medicine & Rehabilitation; Visit Provider Physical Medicine & Rehabilitation
DX: M48.02 Spinal stenosis, cervical region (principal); M50.123 Cervical disc disorder at C6-C7 level with radiculopathy
CPT/HCPCS: 62321; 99152; J1100; J2250